=== PATIENT | male | born 1935 | race Caucasian/White ===

== ENCOUNTER → 2016-06-30 09:46 | Outpatient (CLI) | payer MEDICARE ==
[2016-06-23 11:45] VITALS: BMI 20.5
[~2016-06-30 09:46] MED LIST: ADVAIR 250/501 DISK INH; BAYER ASPIRIN325 MG PO; BAYER CHEWABLE81 MG PO; BETAPACE 80 MG80 MG PO; BREO ELLIPTA 11 EACH INH; BROVANA15 MCG/2 M INH; BUMEX2 MG PO; CARDIZEM CD120 MG PO; CARDIZEM CD240 MG PO; CARDIZEM LA180 MG PO; CARDIZEM60 MG PO; DROXIA200 MG PO; FOLATE0.4 MG; FOLATE0.4 MG PO; HYDROXYUREA500 MG PO; IMIQUIMOD 5% TOPICAL; IPRAT-ALBUT 0.5-3 ML UPD; LANOXIN250 MCG PO; LASIX20 MG PO; LEVAQUIN500 MG PO; LEVAQUIN750 MG PO; LEXAPRO10 MG PO; LOPRESSOR25 MG PO; MUCINEX600 MG PO; MULTIPLE VITAMI1 TA1 PO; NORVASC2.5 MG PO; OMNICEF300 MG PO; PREDNISONE10 MG PO; PREDNISONE20 MG PO; PULMICORT0.5 MG/21 UPD; SINGULAIR10 MG PO; SOLU-MEDRO40 MG/1 M1 PO; XARELTO15 MG PO; ZPAK PO
== END | disposition home or self-care (01) ==
LOC: D.RT 09:46
DX: J44.9 Chronic obstructive pulmonary disease, unspecified (principal)

== ENCOUNTER 2016-07-02 12:34 | Inpatient (IN) | payer MEDICARE ==
[~2016-07-02] VITALS: Ht 177.8 cm; Wt 68.9 kg
[~2016-07-02 12:34] MED LIST changes: -CARDIZEM CD120 MG PO; -LANOXIN250 MCG PO; -LEXAPRO10 MG PO; -ZPAK PO
--- NOTE | 2016-07-02 12:53 | NUR ---
RECEIVED PT FROM ADMISSIONS DIRECT ADMIT FROM DR INIGUEZ'S OFFICE PT AAOX4 RESP SOB ON O2 5LPM NC TELEMETRY APPLIED UCAF 127 SALINE LOCK SITED TO RFA WITH 22 GA IV CATH X 1 ATTEMPT USING ASEPTIC TECHNIQUE
[2016-07-02 13:04] VITALS: BP 121/71; BMI 21.4
[2016-07-02 14:37] LABS: BASOPHILS 0.3 % (0.0-2.0); EOSINOPHILS 1.4 % (0-7); HEMATOCRIT 34.3 % (42.0-54.0); HEMOGLOBIN 13.1 g/dL (13.5-17.5); IMMATURE GRANULOCYTES 1.7 % (0-5); LYMPHOCYTES 12.6 % (15-50); MCH 39.9 pg (26.0-34.0); MCHC 38.2 g/dL (31.0-37.0); MCV 104.6 fL (80.0-100.0); MEAN PLATELET VOLUME 11.2 fL (7.4-10.4); MONOCYTES 2.3 % (2-11); NEUTROPHILS 81.7 % (40-80); PLATELET COUNT 279 10x3/uL (130-400); RBC 3.28 10x6/uL (4.20-6.10); RDW 17.3 % (11.5-14.5); WBC 14.4 10x3/uL (4.8-10.8)
[2016-07-02 14:50] LABS: ANION GAP 14.3 mmol/L (8-16); BILIRUBIN - TOTAL 1.53 mg/dL (0.2-1.3); CALCIUM 8.8 mg/dL (8.5-10.1); CARBON DIOXIDE 30.8 mmol/L (21.0-32.0); CREATININE - SERUM 1.3 mg/dL (0.6-1.3); POTASSIUM - SERUM 4.1 mmol/L (3.5-5.1); PROTEIN - SERUM 6.4 g/dL (6.4-8.2)
[2016-07-02 15:07] LABS: CKMB 1.1 U/L (0.0-3.6); CREATINE KINASE 42 UL (21-232)
[2016-07-02 15:16] LABS: TROPONIN-I < 0.017 ng/mL (0.000-0.060)
[2016-07-02 16:00] VITALS: BP 109/31
--- NOTE | 2016-07-02 19:00 | NUR ---
RECEIVED REPORT AND ASSUMED PT CARE FROM DAY SHIFT NURSE @ THIS TIME.
[2016-07-02 19:41] LABS: CKMB 0.7 U/L (0.0-3.6); CREATINE KINASE 29 UL (21-232)
[2016-07-02 19:42] LABS: TROPONIN-I < 0.017 ng/mL (0.000-0.060)
[2016-07-02 21:00] VITALS: BP 107/68
[2016-07-03 00:42] VITALS: BP 100/68
[2016-07-03 02:22] LABS: BASOPHILS 0.3 % (0.0-2.0); HEMATOCRIT 35.9 % (42.0-54.0); HEMOGLOBIN 11.5 g/dL (13.5-17.5); IMMATURE GRANULOCYTES 1.1 % (0-5); LYMPHOCYTES 17.5 % (15-50); MCH 32.9 pg (26.0-34.0); MEAN PLATELET VOLUME 10.7 fL (7.4-10.4); MONOCYTES 4.4 % (2-11); NEUTROPHILS 75.7 % (40-80); PLATELET COUNT 272 10x3/uL (130-400); RDW 17.1 % (11.5-14.5); WBC 12.5 10x3/uL (4.8-10.8)
[2016-07-03 02:26] LABS: MCV 102.6 fL (80.0-100.0)
[2016-07-03 02:49] LABS: CALCIUM 8.4 mg/dL (8.5-10.1); CARBON DIOXIDE 32.4 mmol/L (21.0-32.0); CHLORIDE - SERUM 102 mmol/L (98-107); CKMB 0.7 U/L (0.0-3.6); CREATINE KINASE 27 UL (21-232); CREATININE - SERUM 1.2 mg/dL (0.6-1.3); MAGNESIUM - SERUM 2.2 mg/dL (1.8-2.4); PHOSPHOROUS 3.2 mg/dL (2.5-4.9); POTASSIUM - SERUM 3.9 mmol/L (3.5-5.1); PRO BNP 1851 pg/mL (0-450); SODIUM 139 mmol/L (136-145); UREA NITROGEN 34 mg/dL (7-18); eGFR NON AFRICAN AMERICAN 62 mL/min (90-120)
[2016-07-03 02:51] LABS: CALC OSMOLALITY 286 mosm/kg (275-300); GLUCOSE 115 mg/dL (74-106); TROPONIN-I < 0.017 ng/mL (0.000-0.060)
[2016-07-03 07:18] VITALS: BP 166/86
[2016-07-03 08:03] VITALS: BP 105/49
--- NOTE | 2016-07-03 10:28 | NUR ---
TELEMETRY CAF. UD GIVEN BY RT. 02 INCREASED TO 11L OXIMIZER TO KEEP SATS >92. WILL CONT. TO MONITOR.
--- NOTE | 2016-07-03 11:39 | NUR ---
LEAVING FOR CT BY W/C.
[2016-07-03 12:11] VITALS: BP 117/72
[2016-07-03 13:10] VITALS: Ht 177.8 cm; Wt 68.9 kg
--- NOTE | 2016-07-03 14:34 | NUR ---
AMBULATES HALLWAY WITH PT ASSIST.
--- NOTE | 2016-07-03 15:29 | NUR ---
VAPOR THERMAL PUT ON BY RT.
[2016-07-03 15:52] VITALS: BP 95/44
[2016-07-03 20:30] VITALS: BP 105/71
[2016-07-04 00:10] VITALS: BP 119/74
--- NOTE | 2016-07-04 02:15 | NUR ---
PT RESTING WELL WITHOUT C/O DISTRESS NOTED. NO NEEDS VOICED. CALL LIGHT WITHIN REACH. WILL CONT TO MONITOR.
[2016-07-04 04:20] VITALS: BP 116/71
[2016-07-04 08:00] VITALS: BP 123/71
[2016-07-04 08:22] VITALS: BP 106/59
--- NOTE | 2016-07-04 09:22 | NUR ---
UP IN ROOM AT SINK CLEANING UP. 02 35% VAPOTHERM. TELEMETRY CAF. WILL MONITOR NEEDS.
[2016-07-04 12:07] VITALS: BP 116/70
[2016-07-04 16:45] VITALS: BP 100/51
--- NOTE | 2016-07-04 19:17 | NUR ---
RESUMED CARE OF PT, LYING IN BED RESPIRATIONS EVEN AND UNLABORED ON 35LPM VIA VAPOTHERM. 88 CAF ON TELEMETRY. RIGHT FOREARM SALINE LOCKED. NO NEEDS VOICED AT THIS TIME. WILL CONTINUE TO MONITOR. SEE NURSE ASSESSMENT. CALL LIGHT IN REACH.
--- NOTE | 2016-07-04 23:24 | NUR ---
SHIPPING AND RECEIVING CLERK AT BEDSIDE TO OBTAIN VITALS, CALL LIGHT IN REACH. WILL CONTINUE WITH PLAN OF CARE.
[2016-07-05] VITALS: BP 108/67
--- NOTE | 2016-07-05 05:26 | NUR ---
AMBULATED IN HALLWAY TO NURSES STATION ON ROOM AIR. STATES "I FEEL GREAT, AND I WANTED TO SEE HOW I TOLERATED NO OXYGEN." VAPOTHERM FLUID EMPTY, NOTIFIED RT. WILL CONTINUE TO MONITOR.
[2016-07-05 06:43] LABS: BASOPHILS 0.1 % (0.0-2.0); EOSINOPHILS 0.1 % (0-7); HEMATOCRIT 38.9 % (42.0-54.0); HEMOGLOBIN 12.7 g/dL (13.5-17.5); IMMATURE GRANULOCYTES 1.2 % (0-5); LYMPHOCYTES 6.8 % (15-50); MCH 33.6 pg (26.0-34.0); MCHC 32.6 g/dL (31.0-37.0); MCV 102.9 fL (80.0-100.0); MEAN PLATELET VOLUME 11.5 fL (7.4-10.4); MONOCYTES 1.4 % (2-11); NEUTROPHILS 90.4 % (40-80); PLATELET COUNT 319 10x3/uL (130-400); RBC 3.78 10x6/uL (4.20-6.10); RDW 17.1 % (11.5-14.5); WBC 24.3 10x3/uL (4.8-10.8)
[2016-07-05 07:09] LABS: ANION GAP 14.2 mmol/L (8-16); CALCIUM 8.6 mg/dL (8.5-10.1); CARBON DIOXIDE 30.8 mmol/L (21.0-32.0); CREATININE - SERUM 1.1 mg/dL (0.6-1.3); MAGNESIUM - SERUM 2.1 mg/dL (1.8-2.4); PHOSPHOROUS 4.4 mg/dL (2.5-4.9)
--- NOTE | 2016-07-05 07:30 | NUR ---
RECEIVED PT IN BED EYES CLOSED RESP UNLABORED NAD NOTED
[2016-07-05 08:00] VITALS: BP 121/78
--- NOTE | 2016-07-05 11:50 | NUR ---
Patient Name: GONZALES BARRIOS Admission Status: Elective Accout number: [id number] Admission Date: 07-02-2016 : 3 Admission Diagnosis: COPD, A FIB Attending: HERBERT Current LOS: 3 Anticipated DC Date: 07-07-2016 Planned Disposition: Home independently with spouse. Denied DC needs. Primary Insurance: [facility] Discharge Planning Comments: CM met with patient to discuss dc plans/needs. Consent given from patient to discuss dc plans. Patient reports he lives at home with his independently. He is still able to drive. He does not currently have any community resources in place. He has used [facility] in the past but not currently. He plans to return to home with at discharge. He feels this is a safe discharge and he does not feel he will need any services arranged for discharge at this time. CM encouraged patient to contact cm if he does have discharge needs. CM will continue to follow and will assist with dc plans/needs. Important medicare message provided, explained, and signed by the patient. Copy of letter given to the patient. Signed message placed on patient's chart. Junior Java Developer: Telma Romo Is the patient Alert and Oriented? Yes 0 * How many steps to enter\exit or inside your home? none 0 * PCP Dr. Dixon 0 * Pharmacy [facility] near the [facility] 0 * Preadmission Environment Home with Family 0 * ADLs Independent 0 * Equipment Oxygen Shower Chair 0 * List name and contact numbers for known caregivers / representatives who currently or will assist patient after discharge: [facility] is O2 provider. Ron Barrios - Spouse - [phone] 0 * Community resources currently utilized None 0 * Please name any agencies selected above. Has used [facility] in the past. Not currently using any home health agencies. 0 * Additional services required to return to the preadmission environment? No 0 * Can the patient safely return to the preadmission environment? Yes 0 * Has this patient been hospitalized within the prior 30 days at any hospital? Yes 0 Grand Total: 0
[2016-07-05 12:00] VITALS: BP 132/79
[2016-07-05 16:00] VITALS: BP 121/68
[2016-07-06 02:11] VITALS: BP 163/92
--- NOTE | 2016-07-06 04:40 | NUR ---
PT LAYING IN BED NO DISTRESS OBSERVED AT THIS TIME RESPERATIONS EVEN AND UNLABORED ON OXYMIZER CALL LIGHT IN REACH SRX2 BED LOW AND LOCKED WILL MONITOR
[2016-07-06 05:29] VITALS: BP 162/95
[2016-07-06 07:27] VITALS: BP 120/72
--- NOTE | 2016-07-06 07:33 | NUR ---
ASSESSMENT COMPLETE PT RESTING QUIETLY DENIES ANY NEEDS OR DISCOMFORT
[2016-07-06 11:27] LABS: ALBUMIN 2.6 g/dL (3.4-5.0); ANION GAP 11.5 mmol/L (8-16); BILIRUBIN - TOTAL 0.9 mg/dL (0.2-1.3); CALCIUM 8.2 mg/dL (8.5-10.1); CARBON DIOXIDE 31.3 mmol/L (21.0-32.0); CREATININE - SERUM 1.2 mg/dL (0.6-1.3); POTASSIUM - SERUM 3.8 mmol/L (3.5-5.1); PROTEIN - SERUM 5.4 g/dL (6.4-8.2)
[2016-07-06 11:29] LABS: HEMATOCRIT 38.6 % (42.0-54.0); HEMOGLOBIN 12.3 g/dL (13.5-17.5); MCH 32.5 pg (26.0-34.0); MCHC 31.9 g/dL (31.0-37.0); MCV 102.1 fL (80.0-100.0); MEAN PLATELET VOLUME 10.7 fL (7.4-10.4); PLATELET COUNT 320 10x3/uL (130-400); RBC 3.78 10x6/uL (4.20-6.10); RDW 16.9 % (11.5-14.5); WBC 27.9 10x3/uL (4.8-10.8)
[2016-07-06 11:36] VITALS: BP 111/65
[2016-07-06 11:47] LABS: LYMPHOCYTES 8 % (15-50); MONOCYTES 3 % (2-11); NEUTROPHILS 89 % (40-80); PLATELET ESTIMATE NORMAL
--- NOTE | 2016-07-06 13:46 | NUR ---
WOUND CARE CONSULT: PT HAS NO SKIN ISSUES. HE IS UP WALKING WITH PHYSICAL THERAPY. WILL MONITOR NEEDED.
[2016-07-06 15:44] VITALS: BP 108/55
[2016-07-06 19:46] VITALS: BP 115/72
--- NOTE | 2016-07-06 23:49 | NUR ---
PT LAYING IN BED NO DISTRESS OBSERVED AT THIS TIME PT EYES CLOSED AND PT APPERS TO BE SLEEPING CALL LIGHT IN REACH SRX2 BED LOW AND LOCKED PT ON 3LNC AND SPO2 96% PT TOLERATING WELL WILL MONITOR
[2016-07-07 00:14] VITALS: BP 114/70
[2016-07-07 04:58] LABS: BASOPHILS 0.1 % (0.0-2.0); EOSINOPHILS 1.1 % (0-7); HEMATOCRIT 38.5 % (42.0-54.0); HEMOGLOBIN 12.4 g/dL (13.5-17.5); IMMATURE GRANULOCYTES 1.1 % (0-5); LYMPHOCYTES 13.2 % (15-50); MCH 32.9 pg (26.0-34.0); MCHC 32.2 g/dL (31.0-37.0); MCV 102.1 fL (80.0-100.0); MEAN PLATELET VOLUME 11.4 fL (7.4-10.4); MONOCYTES 1.3 % (2-11); NEUTROPHILS 83.2 % (40-80); PLATELET COUNT 304 10x3/uL (130-400); RBC 3.77 10x6/uL (4.20-6.10); RDW 16.7 % (11.5-14.5); WBC 23.2 10x3/uL (4.8-10.8)
[2016-07-07 05:05] LABS: ALBUMIN 2.6 g/dL (3.4-5.0); ANION GAP 7.3 mmol/L (8-16); BILIRUBIN - TOTAL 0.83 mg/dL (0.2-1.3); CALCIUM 8.4 mg/dL (8.5-10.1); CARBON DIOXIDE 36.1 mmol/L (21.0-32.0); CREATININE - SERUM 1.2 mg/dL (0.6-1.3); POTASSIUM - SERUM 3.4 mmol/L (3.5-5.1); PROTEIN - SERUM 5.6 g/dL (6.4-8.2)
[2016-07-07 05:07] VITALS: BP 128/83
[2016-07-07 07:37] VITALS: BP 125/83
--- NOTE | 2016-07-07 09:12 | NUR ---
RESP UL ON 02 3L OXIMIZER. TELEMETRY CAF. HR 65. CALL LIGHT IN REACH. WILL CONT. PLAN OF CARE.
--- NOTE | 2016-07-07 11:06 | NUR ---
leaving for x-ray by w/c.
[2016-07-07 11:27] VITALS: BP 110/74
--- NOTE | 2016-07-07 13:07 | NUR ---
UP AMBULATING HALLWAY WITH AT SIDE.
[2016-07-07 15:27] VITALS: BP 112/71
[2016-07-07 21:18] VITALS: BP 122/67
--- NOTE | 2016-07-07 23:32 | NUR ---
PT LAYING IN BED NO DISTRESS OBSERVED PT REQUESTICE WATER AND PRVODED TO PT AT THIS TIME CALL LIGHT IN REACH SRX2 BED LOW AND LOCKED WILL MONITOR
[2016-07-08 01:32] VITALS: BP 111/82
[2016-07-08 04:57] VITALS: BP 100/63
[2016-07-08] MEDS ORDERED: SINGULAIR10 MG PO (07:51)
[2016-07-08] MEDS ORDERED: ZPAK PO (07:51)
[2016-07-08 08:38] VITALS: BP 126/86
--- NOTE | 2016-07-08 10:51 | NUR ---
IV AND TELEMETRY DCD. DC PLANS GIVEN. UNDERSTANDING VOICED.
--- NOTE | 2016-07-08 11:58 | NUR ---
ESCORTED TO CAR BY W/C.
--- NOTE | 2016-07-09 11:11 | CN ---
PATIENT NAME:GONZALES BARRIOS MEDICAL RECORD: [id number] : 35 LOCATION:D. D.2114 ADMIT DATE: 07/02/16 ACCOUNT: [id number] CONSULTING PHYSICIAN: NAIMA CHRISTY MD REFERRING PHYSICIAN: MARCO INIGUEZ DO DATE OF CONSULTATION: 07/02/2016 Cardiology consultation DIAGNOSES: 1. Chronic obstructive pulmonary disease. 2. Atrial fibrillation, chronic. 3. Rapid atrial fibrillation with rapid ventricular response. 4. Hypertension. HISTORY OF PRESENT ILLNESS: Mr. Barrios is known to our group with a past history of atrial fibrillation and also admitted with COPD exacerbation, has atrial fibrillation with rapid ventricular response, heart rate in the 120 range. He was then admitted last week with very similar, he was previously on Cardizem 120 mg t.i.d. He was decreased to 240 mg q. day. He was also on sotalol 80 mg b.i.d. This was not changed. He has a tachyarrhythmias since he has been discharged. PHYSICAL EXAMINATION: GENERAL APPEARANCE: Well-nourished, well-developed, appears stated age. Level of distress, comfortable. PSYCHIATRIC: Mental status, alert, normal affect. Orientation, oriented to time, place and person. EYES: Lids and conjunctiva, noninjected. No discharge, no pallor. ENT: Lips, teeth, gums, normal dentition. Oropharynx, no cyanosis, no pallor. NECK: Carotid arteries, bilateral normal upstroke, no bruits, no thrills. JUGULAR VEINS: No jugular venous pressure or distention. CERVICAL LYMPH NODES: Nontender, nonenlarged. THYROID: Not enlarged. Nontender. No nodules. LUNGS: Respiratory effort, unlabored. CHEST: Normal curvature. No thoracic deformity. No chest wall tenderness. Percussion, resonant. Auscultation, clear. No wheezes, no rales, no rhonchi. CARDIOVASCULAR: Precordial exam, nondisplaced. No heaves or pericardial thrills. Rate and rhythm, regular. Heart sounds, normal S1, normal S2. No S3, no gallop, no rub. Systolic murmur, not heard. Diastolic murmur, not heard. EXTREMITIES: No cyanosis, no edema. Peripheral pulses, full and equal in all extremities, except as noted. No bruits appreciated. ABDOMEN: Soft, nondistended. Normal aorta. No bruit. Nontender. No masses. Liver, nontender, no hepatomegaly. Spleen, nontender, no splenomegaly. MUSCULOSKELETAL: No joint tenderness. No joint swelling. No erythema. NEUROLOGICAL: Normal gait, normal strength, normal tone. SKIN: Warm and dry. REVIEW OF SYSTEMS: The patient reports easy bruising but reports no swollen glands. The patient reports no fever, no night sweats, no significant weight gain, no significant weight loss. No significant exercise tolerance. The patient reports no dry eyes, no irritation, no vision change. Patient reports no difficulty hearing and no ear pain. Patient reports no frequent nose bleeds or nose and sinus problems. Patient reports on arm pain on exertion. No shortness of breath while lying down. No history of heart murmur. Patient CONSULT REPORT [id number] GONZALES BARRIOS reports no cough, no wheezing or coughing up blood. Patient reports no abdominal pain, no vomiting. Normal appetite. No diarrhea and not vomiting blood. No nausea and no constipation. Patient reports no incontinence. No difficulty urinating. No hematuria. No increased frequency. Patient reports no muscle aches. No weakness, no arthralgias, no back pain. No swelling of the extremities. Patient reports no abnormal mole, no jaundice, no rashes. Reports no loss of consciousness. No weakness and no numbness. No seizures, dizziness, or headaches. The patient reports no depression, no sleep disturbance, feeling safe in a relationship and no alcohol abuse. Patient reports on fatigue. Reports no runny nose or sinus pressure. No itching, no hives, and no frequent sneezing. OVERALL IMPRESSION: Atrial fibrillation with rapid ventricular response. At this time, we will go back to Cardizem 120 mg t.i.d. to give 360 mg total dose and go up on sotalol to 120 mg b.i.d. as well. TRANSINT:[id number] Voice Confirmation ID: [id number] DOCUMENT ID: [id number] NAIMA CHRISTY MD at 1111 CC: [id number] DICTATION DATE: 07/02/16 1525 EDUCATION SUPERVISOR: 07/02/16 1653 DIS IN 07/08/16 [place] [address]
== END 2016-07-08 12:00 | disposition home or self-care (01) | DRG 189 ==
LOC: D.M2 12:34
PROVIDERS: Internal Medicine Pulmonary Disease; ADMIT Family Medicine
DX: J96.21 Acute and chronic respiratory failure with hypoxia (principal); I50.23 Acute on chronic systolic (congestive) heart failure; I13.0 Hypertensive heart and chronic kidney disease with heart failure and stage 1 through stage 4 chronic kidney disease, or unspecified chronic kidney disease; J44.1 Chronic obstructive pulmonary disease with (acute) exacerbation; N18.3 Chronic kidney disease, stage 3 (moderate)

== ENCOUNTER → 2016-07-13 18:00 | Outpatient (CLI) | payer MEDICARE ==
[2016-07-03 13:10] VITALS: BMI 21.4
[~2016-07-13 18:00] MED LIST changes: +CARDIZEM CD120 MG PO; +LANOXIN250 MCG PO; +LEXAPRO10 MG PO; +ZPAK PO
== END | disposition home or self-care (01) ==
LOC: D.LABREF 18:00
DX: I48.91 Unspecified atrial fibrillation (principal)

== ENCOUNTER 2016-07-14 09:57 | Inpatient (IN) | payer MEDICARE ==
[~2016-07-14] VITALS: Ht 177.8 cm; Wt 62.0 kg
[~2016-07-14 09:57] MED LIST changes: -CARDIZEM CD120 MG PO; -LANOXIN250 MCG PO; -LEXAPRO10 MG PO
[2016-07-14 11:03] LABS: BASOPHILS 0.3 % (0.0-2.0); EOSINOPHILS 2.4 % (0-7); HEMATOCRIT 39.1 % (42.0-54.0); HEMOGLOBIN 12.2 g/dL (13.5-17.5); IMMATURE GRANULOCYTES 1.3 % (0-5); MCH 32.4 pg (26.0-34.0); MCHC 31.2 g/dL (31.0-37.0); MCV 103.7 fL (80.0-100.0); MEAN PLATELET VOLUME 11.7 fL (7.4-10.4); MONOCYTES 3.5 % (2-11); NEUTROPHILS 85.5 % (40-80); PLATELET COUNT 246 10x3/uL (130-400); RBC 3.77 10x6/uL (4.20-6.10)
[2016-07-14 11:35] LABS: ALBUMIN 2.7 g/dL (3.4-5.0); ANION GAP 10.9 mmol/L (8-16); BILIRUBIN - TOTAL 1.13 mg/dL (0.2-1.3); CALCIUM 8.4 mg/dL (8.5-10.1); CARBON DIOXIDE 31.6 mmol/L (21.0-32.0); CREATININE - SERUM 1.4 mg/dL (0.6-1.3); POTASSIUM - SERUM 4.5 mmol/L (3.5-5.1); PROTEIN - SERUM 5.8 g/dL (6.4-8.2)
[2016-07-14 15:06] VITALS: BP 132/80; BMI 20.1
--- NOTE | 2016-07-14 15:21 | NUR ---
PATIENT ARRIVED FROM ER. WORKING TO BREATHE. O2 @ 5L COLOR GOOD COOL AND DRY. NO CYANOSIS NOTED. NO EDEMA IN EXTREMITIES. MONITOR ON AND UCAFIB@141. IV L FA 18 GA STARTED BY EMS. DR. GLEASON ON FLOOR AND NOTIFIED OF PATIENT'S ADMISSION. SPOUSE AT BEDSIDE.
--- NOTE | 2016-07-14 16:14 | NUR ---
CARIDZEM BOLUS OF 10 GIVEN IV. THEN ANOTHER PIV STARTED IN L FOREARM( 20 GA 1 IN) X 1 ATTEMPT. CARDIZEM GTT STARTED @ 10MG/HR. PATIENT STILL SOB AND WOB HARD. WILL CONTINUE TO MONITOR. IV LINES LABELED:A REG IV. B: CARDIZEM GTT
--- NOTE | 2016-07-14 19:35 | NUR ---
RESUMED CARE OF PT, UP ON SIDE OF BED RESPIRATIONS EVEN AND UNLABORED ON AN OXYMIZER @ 10. UPDRAFT IN PROGRESS. 115 UCAF ON TELEMETRY. LEFT FOREARM INFUSING CARDIZEM @ 10 AND NS @ 50. NO NEEDS VOICED AT THIS TIME. WILL CONTINUE TO MONITOR, CALL LIGHT IN REACH. SEE NURSE ASSESSMENT.
[2016-07-14 20:00] VITALS: BP 129/92
[2016-07-15] VITALS: BP 136/90
[2016-07-15 04:00] VITALS: BP 129/87
--- NOTE | 2016-07-15 04:10 | NUR ---
MEDICAL HEALTH RESEARCHER AT BEDSIDE TO OBTAIN VITALS, CALL LIGHT IN REACH. WILL CONTINUE WITH PLAN OF CARE.
[2016-07-15 05:09] LABS: BASOPHILS 0.1 % (0.0-2.0); EOSINOPHILS 0.1 % (0-7); HEMOGLOBIN 12.6 g/dL (13.5-17.5); IMMATURE GRANULOCYTES 1.2 % (0-5); MCH 31.8 pg (26.0-34.0); MCHC 30.7 g/dL (31.0-37.0); MCV 103.5 fL (80.0-100.0); MEAN PLATELET VOLUME 11.6 fL (7.4-10.4); MONOCYTES 1.9 % (2-11); NEUTROPHILS 91.7 % (40-80); PLATELET COUNT 264 10x3/uL (130-400); RBC 3.96 10x6/uL (4.20-6.10); RDW 16.9 % (11.5-14.5); WBC 18.3 10x3/uL (4.8-10.8)
--- NOTE | 2016-07-15 05:18 | NUR ---
EXPERIENCING SHORTNESS OF BREATH. 93% O2SAT ON 10LPM VIA OXYMIZER. 143 UCAF. RESPIRATORY NOTIFIED. XOPENEX PRN IN PROCESS.
[2016-07-15 05:45] LABS: ALBUMIN 2.7 g/dL (3.4-5.0); ALKALINE PHOSPHATASE 74 U/L (46-116); ALT (SGPT) 33 U/L (10-68); BILIRUBIN - TOTAL 0.96 mg/dL (0.2-1.3); CALC OSMOLALITY 289 mosm/kg (275-300); CALCIUM 8.3 mg/dL (8.5-10.1); CARBON DIOXIDE 26.5 mmol/L (21.0-32.0); CHLORIDE - SERUM 104 mmol/L (98-107); CREATININE - SERUM 1.3 mg/dL (0.6-1.3); GLUCOSE 143 mg/dL (74-106); MAGNESIUM - SERUM 2.3 mg/dL (1.8-2.4); PHOSPHOROUS 4.3 mg/dL (2.5-4.9); POTASSIUM - SERUM 4.5 mmol/L (3.5-5.1); PROTEIN - SERUM 6.4 g/dL (6.4-8.2); SODIUM 141 mmol/L (136-145); UREA NITROGEN 32 mg/dL (7-18); eGFR NON AFRICAN AMERICAN 56 mL/min (90-120)
[2016-07-15 05:55] LABS: TROPONIN-I < 0.017 ng/mL (0.000-0.060)
--- NOTE | 2016-07-15 07:11 | NUR ---
PT SITTING UP IN BED WITH BIPAP ON. PT STATES HE CAN BREATHE MUCH BETTER WITH BIPAP ON AND HE IS WAITING FOR HIS TO GET HERE AT 0800. DENIES OTHER NEEDS WILL CONTINUE TO MONITOR.
[2016-07-15 08:02] VITALS: BP 91/65
--- NOTE | 2016-07-15 10:02 | NUR ---
CALLED DR GLEASON AND CHECKED WITH HIM TO SEE IF OK WITH HIM TO START PT ON LOW DOSE VALIUM PER DR INIGUEZ FOR ANXIETY. HE SAID HE WAS OK WITH LOW DOSE VALIUM OR ATIVAN EITHER ONE. CALLED DR MIRAMONTES OFFICE AND SPOKE WITH MOISES. SHE SAID SHE WOULD TALK TO DR INIGUEZ AND LET HIM KNOW SO HE CAN PUT THE ORDER IN.
[2016-07-15 12:14] VITALS: BP 142/85
[2016-07-15 12:33] VITALS: Ht 177.8 cm; Wt 62.0 kg
[2016-07-15 16:23] VITALS: BP 116/73
--- NOTE | 2016-07-15 17:46 | NUR ---
PT SITTING UP IN BED EMMA NEEDS
--- NOTE | 2016-07-15 19:15 | NUR ---
RESUME CARE OF PT, USING BIPAP 40%, [id number] DRIP @10, LFA-NS-50, [id number],BED IS LOW, SRX2, CALL LIGHT IN REACH, PT DENIES ANY NEEDS, WILL CONTINUE TO MONITOR
[2016-07-15 20:00] VITALS: BP 122/74
[2016-07-16] VITALS: BP 125/80
[2016-07-16 04:00] VITALS: BP 109/70
--- NOTE | 2016-07-16 04:04 | NUR ---
TRACK WATCHMAN AT BEDSIDE TO OBTAIN VITALS, CALL LIGHT IN REACH. WILL CONTINUE TO MONITOR.
--- NOTE | 2016-07-16 04:13 | NUR ---
SLEEPING, BIPAP ON, CALL LIGHT IN REACH, BED IS LOW, SRX2
[2016-07-16 06:26] LABS: BASOPHILS 0.1 % (0.0-2.0); EOSINOPHILS 0.4 % (0-7); HEMATOCRIT 39.5 % (42.0-54.0); HEMOGLOBIN 12.2 g/dL (13.5-17.5); IMMATURE GRANULOCYTES 1.1 % (0-5); LYMPHOCYTES 7.3 % (15-50); MCH 31.9 pg (26.0-34.0); MCHC 30.9 g/dL (31.0-37.0); MCV 103.4 fL (80.0-100.0); MEAN PLATELET VOLUME 11.3 fL (7.4-10.4); MONOCYTES 1.4 % (2-11); NEUTROPHILS 89.7 % (40-80); PLATELET COUNT 241 10x3/uL (130-400); RBC 3.82 10x6/uL (4.20-6.10); RDW 17.1 % (11.5-14.5)
[2016-07-16 06:46] LABS: MAGNESIUM - SERUM 2.3 mg/dL (1.8-2.4); PHOSPHOROUS 3.6 mg/dL (2.5-4.9); POTASSIUM - SERUM 4.3 mmol/L (3.5-5.1)
--- NOTE | 2016-07-16 07:15 | NUR ---
PT SITTING UP IN BED WATCHING TV DENIES NEEDS WILL CONTINUE TO MONITOR.
[2016-07-16 07:51] VITALS: BP 109/64
[2016-07-16 12:00] VITALS: BP 130/67
[2016-07-16 15:58] VITALS: BP 130/59
--- NOTE | 2016-07-16 16:53 | NUR ---
Patient Name: GONZALES STAFFORD Admission Status: ER Accout number: [id number] Admission Date: 07-14-2016 : 1935 Admission Diagnosis:SHORTNESS OF BREATH Attending: HERBERT Current LOS: 2 Anticipated DC Date: Planned Disposition: Home with Home Health Primary Insurance: [facility] PLANNED EXTERNAL PROVIDER: [facility] Discharge Planning Comments: * Is the patient Alert and Oriented? Yes 0 * How many steps to enter\exit or inside your home? NONE 0 * PCP DR. INIGUEZ 0 * Pharmacy [facility], [place] 0 * Preadmission Environment Home with Family 0 * ADLs Independent 0 * Equipment Oxygen Shower Chair 0 * Other Equipment HOME AND PORTABLE OXYGEN [facility] - MEDICAL EQUIPMENT PROVIDER 0 * List name and contact numbers for known caregivers / representatives who currently or will assist patient after discharge: BRYAN STAFFORD, SPOUSE, 0 * Community resources currently utilized None 0 * Please name any agencies selected above. NONE 0 * Additional services required to return to the preadmission environment? Yes * Can the patient safely return to the preadmission environment? Yes 0 * Has this patient been hospitalized within the prior 30 days at any hospital? Yes 0 CM MET WITH PT IN ROOM TO DISCUSS DISCHARGE PLANNING AND NEEDS. PT REPORTS LIVING AT HOME INDEPENDENTLY WITH SPOUSE. PT HAS HOME AND PORTABLE OXYGEN AND SHOWER CHAIR AT HOME FROM [facility]. PT HAS NO OUTSIDE SERVICES ASSISTING IN THE HOME. CM DISCUSSED AVAILABILITY OF HOME HEALTH, REHAB SERVICES AND MEDICAL EQUIPMENT. PT WOULD LIKE HOME HEALTH AT DISCHARGE WITH [facility], HE HAD THEM IN THE PAST AND THEY HAVE HELPED HIM WITH THERAPY AND PT REPORTS GETTING WEAK AGAIN. CHOICE LETTER FOR [facility] SIGNED. PT REPORTS HIS WILL PICK HIM UP FOR DISCHARGE HOME. PT WOULD LIKE [facility] FOR PHYSICAL THERAPY AT HOME; IF DOCTOR AGREES, CM WILL ARRANGE WITH PHYSICIAN ORDERS FOR HOME HEALTH SERVICES. Residential Gl[facility]ier: Osito Edmondson
--- NOTE | 2016-07-16 17:45 | NUR ---
PT SITTING UP IN BED TALKING ON THE PHONE WITH FRIEND DENIES NEEDS WILL CONTINUE TO MONITOR.
[2016-07-16 20:00] VITALS: BP 123/72
--- NOTE | 2016-07-16 20:00 | NUR ---
PT RESTING IN BED WITH NO DISTESS. CURRENTLY HAS OXIMISER AT 10ML IN PLACE WITH NONLABORED RESPIRATIONS. IV TO LFA WITH CARDIZEM AT 10ML/HR AND NS @ 50ML/HR INFUSING. UCAF PER TELEMETRY. FSBS 231, TREATED WITH SLIDING SCALE.
[2016-07-17] VITALS: BP 128/78
--- NOTE | 2016-07-17 01:51 | NUR ---
RESTING IN BED. PT HAS NOW HAD RESPIRATORY PLACE HIM ON BIPAP AND RESPS ARE EVEN/NONLABORD. CALL LIGHT IN REACH.
[2016-07-17 04:00] VITALS: BP 119/66
[2016-07-17 06:48] LABS: BASOPHILS 0.2 % (0.0-2.0); EOSINOPHILS 0.5 % (0-7); HEMATOCRIT 36.3 % (42.0-54.0); HEMOGLOBIN 11.1 g/dL (13.5-17.5); IMMATURE GRANULOCYTES 0.9 % (0-5); LYMPHOCYTES 7.1 % (15-50); MCH 31.7 pg (26.0-34.0); MCHC 30.6 g/dL (31.0-37.0); MCV 103.7 fL (80.0-100.0); MEAN PLATELET VOLUME 11.5 fL (7.4-10.4); MONOCYTES 1.7 % (2-11); NEUTROPHILS 89.6 % (40-80); PLATELET COUNT 224 10x3/uL (130-400); WBC 16.6 10x3/uL (4.8-10.8)
--- NOTE | 2016-07-17 07:00 | NUR ---
RECEIVED REPORT. ASSUMED CARE OF PATIENT. PATEINT SITTING UP IN BED WITH EYES OPEN, BIPAP PATENT. PATIENT DENIES PAIN OR DISCOMFORT. DENIES NEEDS AT THIS TIME. NO DISTRESS.
[2016-07-17 07:12] LABS: ALBUMIN 2.3 g/dL (3.4-5.0); ANION GAP 11.6 mmol/L (8-16); BILIRUBIN - TOTAL 0.6 mg/dL (0.2-1.3); CARBON DIOXIDE 28.5 mmol/L (21.0-32.0); CREATININE - SERUM 1.2 mg/dL (0.6-1.3); PHOSPHOROUS 3.5 mg/dL (2.5-4.9); POTASSIUM - SERUM 4.1 mmol/L (3.5-5.1); PROTEIN - SERUM 5.6 g/dL (6.4-8.2)
[2016-07-17 08:02] VITALS: BP 117/73
[2016-07-17 11:18] VITALS: BP 121/72
--- NOTE | 2016-07-17 11:19 | NUR ---
FSBS 267. 10 UNITS HUMALIN ADMINISTERED PER SLIDING SCALE. NO DISTRESS.
--- NOTE | 2016-07-17 12:31 | NUR ---
SPOKE WITH IN REGARDS TO PATIENT IN UCAF AND ON CARDIZEN DRIP. NEW ORDERS RECEIVED FOR CARDIZEM CD 240MG X 1 AND CARDIZEM 10MG BOLUS AND CONTINUE WITH CARDIZEM DRIP AT 10ML/HR AT THIS TIME.
--- NOTE | 2016-07-17 15:24 | NUR ---
PATIENT WITH EYES OPEN. RESTING IN BED. PATIENT RECEIVING BREATHING TX AT THIS TIME. NO DISTRESS. DENIES PAIN. CALL LIGHT WITHIN REACH.
[2016-07-17 15:50] VITALS: BP 122/80
--- NOTE | 2016-07-17 16:50 | NUR ---
FSBS 184. 4 UNITS HUMALIN ADMINISTERED PER SLIDING SCALE AT THIS TIME. SITTING TO SIDE OF BED WAITING FOR PM MEAL AT THIS TIME. NO DISTRESS.
[2016-07-17 20:28] VITALS: BP 127/69
[2016-07-18 00:19] VITALS: BP 126/65
--- NOTE | 2016-07-18 02:59 | NUR ---
ASSESSED AT THE BEGINNING OF THE SHIFT. PT IS ALERT AND ORIENTED, ABLE TO VERBALIZE NEEDS. HE HAS A CARDIAC DRIP FOR HIS A-FIB AND IT IS CONTROLLED NOW. O2 IS BY OXIMIZER AT 8 LITERS UNTIL BEDTIME AT WHICH TIME HE IS USING BIPAP. HE IS ABLE TO TURN AND REPOSITON HIMSELF IN BED AND GET UP TO THE BATHROOM WHEN HE IS NOT USING THE URINAL. THE BED IS LOW, RAILS UP X'S 2 WITH THE CALL LIGHT AT HAND. HE HAS A NEW 20 GAUGE TO THE LEFT FOREARM BECAUSE ONE WAS LEAKING. NOW BOTH IV SITES ARE PATENT.
[2016-07-18 05:09] LABS: BASOPHILS 0.1 % (0.0-2.0); EOSINOPHILS 0.3 % (0-7); HEMATOCRIT 35.6 % (42.0-54.0); HEMOGLOBIN 11.2 g/dL (13.5-17.5); IMMATURE GRANULOCYTES 1.3 % (0-5); LYMPHOCYTES 6.5 % (15-50); MCHC 31.5 g/dL (31.0-37.0); MCV 101.7 fL (80.0-100.0); MEAN PLATELET VOLUME 11.5 fL (7.4-10.4); MONOCYTES 0.7 % (2-11); NEUTROPHILS 91.1 % (40-80); PLATELET COUNT 227 10x3/uL (130-400); RDW 16.8 % (11.5-14.5); WBC 17.3 10x3/uL (4.8-10.8)
[2016-07-18 05:17] VITALS: BP 128/65
[2016-07-18 05:27] LABS: CALCIUM 8.3 mg/dL (8.5-10.1); CARBON DIOXIDE 28.8 mmol/L (21.0-32.0); CREATININE - SERUM 1.1 mg/dL (0.6-1.3); MAGNESIUM - SERUM 1.9 mg/dL (1.8-2.4); POTASSIUM - SERUM 3.8 mmol/L (3.5-5.1)
--- NOTE | 2016-07-18 07:00 | NUR ---
RECEIVED REPORT. ASSUMED CARE OF PATIENT. CALL LIGHT WITHIN REACH. SITTING UP IN BED READING THE PAPER. OXIMIZER AT 8L. RESP EVEN AND UNLABORED. DENIES NEEDS. DENIES PAIN. NO DISTRESS.
[2016-07-18 07:41] VITALS: BP 99/67
[2016-07-18 11:23] VITALS: BP 137/73
--- NOTE | 2016-07-18 11:37 | NUR ---
FSBS 313. 12 UNITS HUMULIN ADMINISTERED PER SLIDING SCALE AT THIS TIME. NO DISTRESS.
--- NOTE | 2016-07-18 13:50 | NUR ---
IV CARDIZEM DISCONTINUED AND ORAL CARDIZEM CD STARTED AT THIS TIME. PATIENT MADE AWARE OF CURRENT CHANGES. PATIENT COMPLETING BREATHING TX AT THIS TIME.
[2016-07-18 15:24] VITALS: BP 159/79
--- NOTE | 2016-07-18 16:32 | NUR ---
FSBS 252. 10 UNITS HUMULIN ADMINISTERED PER SLIDING SCALE AT THIS TIME.
[2016-07-18 19:00] VITALS: BP 123/68
--- NOTE | 2016-07-18 19:00 | NUR ---
REPORT GIVEN TO ONCOMING NURSE. NO DISTRESS.
--- NOTE | 2016-07-18 19:03 | NUR ---
SITTING UP IN BED, AAOX3, SKIN WARM AND DRY, RESP UNLABORED, IV PATENT TO LEFT FOREARM, O2@8L OXYMISER, MOOD PLEASANT, DENIES NEEDS
[2016-07-19] VITALS (7 sets, daily range): BP systolic 125–167; BP diastolic 67–84
--- NOTE | 2016-07-19 05:24 | NUR ---
SITTING UP IN BED, BIPAP IN USE, NO DISTRESS NOTED
[2016-07-19 05:38] LABS: BASOPHILS 0.1 % (0.0-2.0); EOSINOPHILS 0.4 % (0-7); HEMATOCRIT 32.9 % (42.0-54.0); HEMOGLOBIN 10.2 g/dL (13.5-17.5); IMMATURE GRANULOCYTES 1.5 % (0-5); LYMPHOCYTES 5.9 % (15-50); MCH 31.2 pg (26.0-34.0); MCV 100.6 fL (80.0-100.0); MONOCYTES 1.8 % (2-11); NEUTROPHILS 90.3 % (40-80); PLATELET COUNT 249 10x3/uL (130-400); RBC 3.27 10x6/uL (4.20-6.10); RDW 16.3 % (11.5-14.5); WBC 19.8 10x3/uL (4.8-10.8)
--- NOTE | 2016-07-19 05:59 | NUR ---
NO CHANGES FROM PREVIOUS ASSESSMENT, CALL LIGHT IN REACH. WILL CONTINUE WITH PLAN OF CARE.
[2016-07-19 06:41] LABS: ANION GAP 12.3 mmol/L (8-16); CALCIUM 7.9 mg/dL (8.5-10.1); CARBON DIOXIDE 29.1 mmol/L (21.0-32.0); CREATININE - SERUM 1.1 mg/dL (0.6-1.3); DIGOXIN 0.82 ng/mL (0.90-2.00); POTASSIUM - SERUM 3.4 mmol/L (3.5-5.1)
--- NOTE | 2016-07-19 07:34 | NUR ---
0700-AROUSES EASILY. REQUESTING SHAVE AND TEETH BRUSHING LATER THIS AM. ON HEART MONITOR SHOWING UCAF, HR 146. BIPAP SEEN AT BEDSIDE. ON 8L PER OX. LEFT FA SEEN WITH NS INFUSING AT 50 CC/HR, SALINE LOCK ALSO SEEN TO LEFT FA. WILL CONTINUE TO MONITOR.
--- NOTE | 2016-07-19 11:38 | NUR ---
Rehab Note- Prescreen Order received,. The patient has [employer] & will require a PreAuth prior to IRF stay. Need PT & OT eval prior to PreAuth process started. Thank you for this referral! Chanda White RN Clinical Liaison, Rehab Care/[facility]
--- NOTE | 2016-07-19 17:19 | NUR ---
SITTING ON SIDE OF BED EATING SUPPER. DENIES NEEDS AT PRESENT TIME. WILL CONTINUE TO MONITOR.
--- NOTE | 2016-07-19 19:41 | NUR ---
BEDSIDE REPORT RECIVED, INITITAL ASSESSMENT COMPLETE, PLEASE SEE FLOW SHEETS FOR DETAILS. DENIES PAIN/NEEDS AT THIS TIME, WILL CONTINUE TO MONITOR.
--- NOTE | 2016-07-19 21:00 | NUR ---
IN BED, RESTING, DENIES PAIN/NEEDS AT THIS TIME, WILL CONTINUE TO MONITOR.
--- NOTE | 2016-07-20 01:04 | NUR ---
PT SLEEPING. RESPIRATIONS UNLABORED AND NO S&S OF ACUTE DISTRESS. BIPAP ON. BED LOW AND LOCKED, CALL LIGHT IN REACH. WILL CONTINUE TO MONITOR.
--- NOTE | 2016-07-20 02:46 | NUR ---
PT SLEEPING. WILL CONTINUE TO MONITOR.
[2016-07-20 05:12] VITALS: BP 115/74
--- NOTE | 2016-07-20 07:00 | NUR ---
RECEIVED REPORT. ASSUMED CARE OF PATEINT. CALL LIGHT WITHIN REACH. SITTING UP IN BED WITH STUDENT NURSE AT BEDSIDE. RESP EVEN AND UNLABORED. OXIMIZER AT 8 LITERS. DENIES NEEDS AT THIS TIME. NO DISTRESS.
[2016-07-20 08:31] VITALS: BP 137/78
--- NOTE | 2016-07-20 10:52 | NUR ---
Rehab Note- OT Eval completed. Will submit to [facility] for PreAuth for possible IRF stay. Will continue to follow. Chanda White RN Clinical Liaison, Rehab Care/[facility]
--- NOTE | 2016-07-20 11:30 | NUR ---
FSBS 201. 8 UNITS INSULIN ADMINISTERED BY STUDENT NURSE AND INSTRUCTOR. PATIENT SITTING UP IN BED. NO DISTRESS.
[2016-07-20 11:42] VITALS: BP 106/74
--- NOTE | 2016-07-20 13:12 | NUR ---
Nutrition follow-up: Diet: Low sodium PO Intake 100% of meals Labs reviewed +BM Wt: 167# PO intake is good at this time RDN following.
--- NOTE | 2016-07-20 14:20 | NUR ---
All information submitted to [facility] for IRF authorization Ref# [id number] Robina Niño RN Clinical Liaison, Rehab
--- NOTE | 2016-07-20 14:37 | NUR ---
DRESSING CHANGE TO RIGHT FOREARM 22 GAUGE IV COMPLETE AT THIS TIME. TOLERATED IV SITE WELL. NO DISTRESS.
[2016-07-20 15:51] VITALS: BP 123/60
--- NOTE | 2016-07-20 16:24 | NUR ---
FSBS 141. NO INSULIN COVERAGE REQUIRED PER SLIDING SCALE.
--- NOTE | 2016-07-20 18:09 | NUR ---
RESTING WELL IN BED WITH EYES OPEN, ATTENTION TOWARD TELEVISION. CALL LIGHT WITHIN REACH. DENIES NEEDS. NO DISTRESS.
[2016-07-20 19:00] VITALS: BP 112/75
--- NOTE | 2016-07-20 19:00 | NUR ---
BEDSIDE SHIFT REPORT RECIVED, INITIAL ASSESSMENT COMPLETE, PLEASE SEE FLOW SHEETS FOR DETAILS. DENIES PAIN/NEEDS AT THIS TIME. BED LOW AND LOCKED, CALL LIGHT IN REACH. VSS, WILL CONTINUE TO MONITOR.
--- NOTE | 2016-07-21 00:17 | NUR ---
PT SLEEPING, BED LOW AND LOCKED, CALL LIGHT IN REACH. WILL CONTINUE TO MONITOR.
--- NOTE | 2016-07-21 03:31 | NUR ---
PT IV SITE WITH BLOOD AND DRESSING COMING UP. REDRESSED SITE. TIMED AND DATED. PT DENIES PAIN/NEEDS AT THIS TIME, WILL CONTINUE TO MONITOR.
[2016-07-21 04:00] VITALS: BP 118/59
[2016-07-21 05:04] LABS: HEMATOCRIT 30.6 % (42.0-54.0); HEMOGLOBIN 9.4 g/dL (13.5-17.5); MCH 30.7 pg (26.0-34.0); MCHC 30.7 g/dL (31.0-37.0); MEAN PLATELET VOLUME 11.8 fL (7.4-10.4); PLATELET COUNT 268 10x3/uL (130-400); RBC 3.06 10x6/uL (4.20-6.10); RDW 16.5 % (11.5-14.5); WBC 22.6 10x3/uL (4.8-10.8)
[2016-07-21 05:06] LABS: CALC OSMOLALITY 286 mosm/kg (275-300); CALCIUM 8.1 mg/dL (8.5-10.1); CARBON DIOXIDE 33.4 mmol/L (21.0-32.0); CHLORIDE - SERUM 103 mmol/L (98-107); GLUCOSE 93 mg/dL (74-106); POTASSIUM - SERUM 3.5 mmol/L (3.5-5.1); SODIUM 139 mmol/L (136-145); UREA NITROGEN 37 mg/dL (7-18); eGFR NON AFRICAN AMERICAN 76 mL/min (90-120)
[2016-07-21 05:33] LABS: LYMPHOCYTES 10 % (15-50); MONOCYTES 4 % (2-11); NEUTROPHILS 71 % (40-80); PLATELET ESTIMATE NORMAL
[2016-07-21 05:34] LABS: HYPER SEGMENTED NEUTROPHILS OCC; VACUOLES OCC
[2016-07-21 07:39] VITALS: BP 132/77
[2016-07-21 11:38] VITALS: BP 115/96
--- NOTE | 2016-07-21 11:59 | NUR ---
Patient Name: GONZALES STAFFORD Encounter No: [id number] : 1935 Primary Insurance: [id number] Anticipated DC Date: Planned Disposition: INPATIENT REHAB External Planned Provider: [facility] INPATIENT REHAB DCP follow-up note: CM SPOKE TO PT IN ROOM REGARDING ORDER FOR INPATIENT REHAB PRESCREENING, DISCHARGE PLANNING AND NEEDS. PT HAS DISCUSSED INPATIENT REHAB SERVICES WITH THE DOCTOR AND WOULD LIKE TO BE CONSIDERED FOR INPATIENT REHAB AT [facility]. IF DENIED, PT WOULD LIKE TO GO HOME WITH [facility]. CHART REVIEW INDICATES INPATIENT REHAB AUTHORIZATION REQUESTED/SUBMITTED TO PT'S INSURANCE COMPANY ON 07-20-16. IMPORTANT MESSAGE FROM MEDICARE PROVIDED AND EXPLAINED. CM WAITING INSURANCE AUTHORIZATION OR DENIAL FOR INPATIENT REHAB SERVICES AT [facility]. Osito Edmondson, CASE MANAGEMENT
[2016-07-21 15:25] VITALS: BP 113/66
--- NOTE | 2016-07-21 19:10 | NUR ---
ALERT AND ORIENTED X4. SITTING UP IN BED. DENIES PAIN. SOB TREATED WITH UPDRAFTS AND OXYGEN @ 5L OXYMIZER. CONTINUE PLAN OF CARE AND SAFETY PRECAUTIONS. PREPARE SHIFT CHANGE REPORT.
[2016-07-21 19:56] VITALS: BP 121/65
[2016-07-22] VITALS: BP 117/73
[2016-07-22 04:00] VITALS: BP 128/80
--- NOTE | 2016-07-22 05:27 | NUR ---
PT IV LEAKING AND SITE BLOODY. PT REQUESTS TO BE RESITED. RIGHT WRIST IV REMOVED WITH CATH INTACT. DRESSING TO SITE. IV RESITED TO LEFT FOREARM WITH 22 GA ANGIOCATH X1 STICK AND PT FACUNDO WELL. NS RESTARTED 50 CC/HR AND IV SECURED WITH TAPE. WILL CONT TO MONITOR.
--- NOTE | 2016-07-22 07:19 | NUR ---
PT STANDING UP TO SIDE OF BED USING URINAL. DENIES NEEDS WILL CONT TO MONITOR.
[2016-07-22 08:00] VITALS: BP 126/71
[2016-07-22 08:24] LABS: MAGNESIUM - SERUM 1.9 mg/dL (1.8-2.4); PHOSPHOROUS 3.6 mg/dL (2.5-4.9); POTASSIUM - SERUM 4.3 mmol/L (3.5-5.1)
[2016-07-22 12:00] VITALS: BP 132/76
--- NOTE | 2016-07-22 13:40 | NUR ---
PT SITTING UP IN BED DENIES NEEDS WILL CONTINUE TO MONITOR.
[2016-07-22 16:00] VITALS: BP 137/65
--- NOTE | 2016-07-22 17:47 | NUR ---
PT SITTING UP IN BED DENIES NEEDS WILL CONT TO MONITOR.
[2016-07-22 21:18] VITALS: BP 156/83
[2016-07-23 01:12] VITALS: BP 126/79
[2016-07-23 05:01] VITALS: BP 121/75
[2016-07-23 05:26] LABS: MAGNESIUM - SERUM 1.9 mg/dL (1.8-2.4); PHOSPHOROUS 3.7 mg/dL (2.5-4.9)
--- NOTE | 2016-07-23 07:00 | NUR ---
PT SITTING UP IN BED WATCHING TV DENIES NEEDS WILL CONT TO MONITOR.
[2016-07-23 08:00] VITALS: BP 106/68
[2016-07-23 12:00] VITALS: BP 111/63
--- NOTE | 2016-07-23 13:03 | NUR ---
Recieved a call from Bouchra at [facility]. The vice president medical affairs has denied the request for acute inpatient rehab because he is ambulating 250 ft. He feels his needs can be met at a skilled facility or home with HH. If the physician disagrees a peer to peer can be done with the vice president medical affairs by calling Bouchra at [phone] ext [phone]. Relayed this information to the Yanira Christianson RN. Robina Niño RN CL
--- NOTE | 2016-07-23 14:59 | NUR ---
PT SITTING UP IN BED WITH AT BEDSIDE. PT DENIES NEEDS JUST WAITING ON DECISION TO GO TO REHAB OR NOT. STILL WAITING ON INSURANCE APPROVAL.
[2016-07-23 16:00] VITALS: BP 113/63
[2016-07-23 22:07] VITALS: BP 112/60
[2016-07-24 01:00] VITALS: BP 127/83
[2016-07-24 04:31] VITALS: BP 131/84
--- NOTE | 2016-07-24 07:00 | NUR ---
RECEIVED REPORT. ASSUMED CARE OF PATIENT. CALL LIGHT WITHIN REACH. SITTING UP IN BED WITH EYES OPEN, ATTENTION TOWARD TELEVISION. RESP EVEN AND UNLABORED. IV FLUIDS INFUSING ORDERED. NO DISTRESS. DENIES NEEDS.
[2016-07-24 08:00] VITALS: BP 122/66
--- NOTE | 2016-07-24 10:15 | NUR ---
ASSISTED PATIENT IN APPLYING HIS BIPAP MASK AT THIS TIME. NO DISTRESS.
--- NOTE | 2016-07-24 11:16 | NUR ---
FSBS 110. NO INSULIN COVERAGE PER SLIDING SCALE.
--- NOTE | 2016-07-24 11:25 | NUR ---
BIPAP REMOVED AND OXIZER APPLIED. NO DISTRESS.
[2016-07-24 12:00] VITALS: BP 115/67
--- NOTE | 2016-07-24 14:08 | NUR ---
ASSISTED PATIENT WITH PLACING BIPAP MASK AT THIS TIME. NO DISTRESS. CALL LIGHT WITHIN REACH.
[2016-07-24 16:27] VITALS: BP 112/51
--- NOTE | 2016-07-24 17:05 | NUR ---
FSBS 234. 8 UNITS HUMULIN ADMINISTERED PER SLIDING SCALE.
--- NOTE | 2016-07-24 18:25 | NUR ---
RESTING IN BED WITH EYES OPEN. CALL LIGHT WITHIN REACH. DENIES NEEDS. IV FLUIDS INFUSING ORDERED. NO DISTRESS.
[2016-07-24 21:20] VITALS: BP 102/57
--- NOTE | 2016-07-24 21:23 | NUR ---
HS MEDS GIVEN, BS 72, NO COVERAGE NEEDED PER S/S.
[2016-07-25 00:30] VITALS: BP 103/56
--- NOTE | 2016-07-25 04:16 | NUR ---
BIPAP REMOVED AT PT REQUEST, OXIMIZER AT 5 LITER PLACED ON PT.
[2016-07-25 04:30] VITALS: BP 131/67
--- NOTE | 2016-07-25 07:00 | NUR ---
RECEIVED REPORT. ASSUMED CARE OF PATIENT. CALL LIGHT WITHIN REACH. DENIES NEEDS AT THIS TIME. NO DISTRESS. RESTING IN BED WITH EYES OPEN, RESP EVEN AND UNLABORED WITH OXIMIZER ON AT THIS TIME.
[2016-07-25 09:10] VITALS: BP 131/72
--- NOTE | 2016-07-25 09:30 | NUR ---
ASSISTED PATIENT WITH SET UP FOR AM CARES AT THIS TIME. NO DISTRESS.
--- NOTE | 2016-07-25 11:22 | NUR ---
FSBS 123. NO INSULIN COVERAGE PER SLIDING SCALE. NO DISTRESS.
[2016-07-25 12:00] VITALS: BP 150/69
--- NOTE | 2016-07-25 13:59 | NUR ---
BIPAP REMOVED AND PLACED ON OXIMIZER AT THIS TIME. NO DISTRESS.
[2016-07-25 16:00] VITALS: BP 101/62
--- NOTE | 2016-07-25 17:10 | NUR ---
FSBS 207. 8 UNITS HUMULIN ADMINISTERED PER SLIDING SCALE. NO DISTRESS. SITTING TO SIDE OF BED CONSUMING PM MEAL.
--- NOTE | 2016-07-25 19:03 | NUR ---
SITTING UP IN BED, AAOX3, SKIN WARM AND DRY, RESP UNLABORED, IV PATENT TO LEFT FOREARM, O2@5L OXY, MOOD PLEASANT, NO DISTRESS NOTED
--- NOTE | 2016-07-25 19:10 | NUR ---
REPORT GIVEN TO ONCOMING NURSE. NO DISTRESS.
[2016-07-26 00:06] VITALS: BP 115/63
[2016-07-26 05:35] LABS: BASOPHILS 0.2 % (0.0-2.0); EOSINOPHILS 1.1 % (0-7); HEMATOCRIT 28.1 % (42.0-54.0); HEMOGLOBIN 8.8 g/dL (13.5-17.5); IMMATURE GRANULOCYTES 3.5 % (0-5); LYMPHOCYTES 10.1 % (15-50); MCH 31.5 pg (26.0-34.0); MCHC 31.3 g/dL (31.0-37.0); MCV 100.7 fL (80.0-100.0); MEAN PLATELET VOLUME 11.4 fL (7.4-10.4); MONOCYTES 6.8 % (2-11); NEUTROPHILS 78.3 % (40-80); RBC 2.79 10x6/uL (4.20-6.10); RDW 17.3 % (11.5-14.5); WBC 14.2 10x3/uL (4.8-10.8)
[2016-07-26 05:41] LABS: PLATELET COUNT 343 10x3/uL (130-400)
[2016-07-26 05:55] VITALS: BP 123/61
[2016-07-26 05:56] LABS: CALC OSMOLALITY 285 mosm/kg (275-300); CALCIUM 7.9 mg/dL (8.5-10.1); CARBON DIOXIDE 32.3 mmol/L (21.0-32.0); CHLORIDE - SERUM 104 mmol/L (98-107); CREATININE - SERUM 0.9 mg/dL (0.6-1.3); GLUCOSE 87 mg/dL (74-106); POTASSIUM - SERUM 3.6 mmol/L (3.5-5.1); SODIUM 141 mmol/L (136-145); UREA NITROGEN 28 mg/dL (7-18); eGFR NON AFRICAN AMERICAN 86 mL/min (90-120)
[2016-07-26 08:25] VITALS: BP 103/82
--- NOTE | 2016-07-26 09:42 | NUR ---
TELEMETRY CAF HR 99. RESP UL ON 02 5L OXIMIZER. IV PATENT. CALL LIGHT IN REACH. WILL CONT. PLAN OF CARE.
--- NOTE | 2016-07-26 10:24 | NUR ---
Patient Name: GONZALES STAFFORD Encounter No: [id number] : 1935 Primary Insurance: [employer] Anticipated DC Date: 07-27-2016 Planned Disposition: Home with Home Health External Planned Provider: DR. INIGUEZ DCP follow-up note: CM MET WITH PT TO RE-ASSESS DC PLAN/NEEDS. PT STATED THAT HE IS EITHER CONSIDERING HOME WITH HOME HEALTH OR HOME WITH OUTPATIENT PHYSICAL THERAPY. HE WOULD PREFER TO HAVE OP PT IN [place] IF THAT IS AVAILABLE. CM PLACED CALL TO [facility] TO INQUIRE ABOUT OP PT SERVICES AND THEY INFORMED THAT OP PT IS OFFERED THROUGH THEIR "FIT FOR LIFE" PROGRAM AND REFERRAL/ORDER CAN BE SENT THERE. PATIENT STATED HE WOULD LIKE TO DISCUSS DC OPTIONS FURTHER WHEN HIS IS HERE. PATIENT TO CALL CM'S PHONE WHEN ARRIVES TO CONTINUE DC PLAN DISCUSSION. Yanira Hernandez RN
--- NOTE | 2016-07-26 12:05 | NUR ---
02 SAT 60% ON 02 4L NC. RESP PAGED. OXIMIZER APPLIED AT 13L. WILL CONT. TO MONITOR.
--- NOTE | 2016-07-26 12:22 | NUR ---
02 SAT 99% ON 02 5L NC. WILL CON. PLAN OF CARE.
[2016-07-26 12:53] VITALS: BP 149/62
--- NOTE | 2016-07-26 13:14 | NUR ---
Nutrition follow-up: Diet: low sodium PO intake 100% of most meals Labs reviewed +BM Wt: 139# RDN following.
[2016-07-26 16:49] VITALS: BP 128/65
--- NOTE | 2016-07-26 19:03 | NUR ---
SITTING UP IN BED, AAOX3, SKIN WARM AND DRY, RESP UNLABORED, IV PATENT TO LEFT FOREARM, O2@5LNC, MOOD PLEASANT, DENIES NEEDS
[2016-07-26 21:47] VITALS: BP 110/57
[2016-07-27 01:44] VITALS: BP 117/66
--- NOTE | 2016-07-27 01:47 | NUR ---
PT LAYING IN BED NO NO DISTRESS OBSERVED CALL LIGHT IN REACH SRX2 WILL MONITOR
--- NOTE | 2016-07-27 05:31 | NUR ---
RESTING QUIETLY IN BED, NO DISTRESS NOTED
[2016-07-27 06:10] VITALS: BP 118/76
--- NOTE | 2016-07-27 07:00 | NUR ---
RECEIVED REPORT. ASSUMED CARE OF PATIENT. SITTING UP IN BED WITH EYES OPEN. CALL LIGHT WITHIN REACH. O2 VIA NC. RESP EVEN AND UNLABORED. DENIES NEEDS. NO DISTRESS.
[2016-07-27 08:08] VITALS: BP 130/73
[2016-07-27 08:28] LABS: BASOPHILS 0.6 % (0.0-2.0); EOSINOPHILS 1.2 % (0-7); IMMATURE GRANULOCYTES 2.3 % (0-5); LYMPHOCYTES 6.9 % (15-50); MCH 30.9 pg (26.0-34.0); MCHC 30.3 g/dL (31.0-37.0); MCV 101.9 fL (80.0-100.0); MEAN PLATELET VOLUME 11.4 fL (7.4-10.4); MONOCYTES 7.9 % (2-11); NEUTROPHILS 81.1 % (40-80); RBC 3.24 10x6/uL (4.20-6.10); RDW 17.6 % (11.5-14.5); WBC 17.2 10x3/uL (4.8-10.8)
[2016-07-27 08:44] LABS: PLATELET COUNT 433 10x3/uL (130-400)
[2016-07-27 08:45] LABS: ALBUMIN 2.8 g/dL (3.4-5.0); ALKALINE PHOSPHATASE 67 U/L (46-116); ALT (SGPT) 58 U/L (10-68); CALC OSMOLALITY 278 mosm/kg (275-300); CALCIUM 8.2 mg/dL (8.5-10.1); CARBON DIOXIDE 32.3 mmol/L (21.0-32.0); CHLORIDE - SERUM 101 mmol/L (98-107); GLUCOSE 93 mg/dL (74-106); POTASSIUM - SERUM 3.4 mmol/L (3.5-5.1); PROTEIN - SERUM 5.8 g/dL (6.4-8.2); SODIUM 138 mmol/L (136-145); UREA NITROGEN 22 mg/dL (7-18); eGFR NON AFRICAN AMERICAN 76 mL/min (90-120)
--- NOTE | 2016-07-27 09:18 | NUR ---
SITTING TO SIDE OF BED COMPLETING AM CARES. K+ SUPPLEMENT PROVIDED. NO DISTRESS. CALL LIGHT WITHIN REACH.
--- NOTE | 2016-07-27 11:22 | NUR ---
FSBS 270. 10 UNITS HUMULIN ADMINISTERED PER SLIDING SCALE.
[2016-07-27 11:39] VITALS: BP 162/63
--- NOTE | 2016-07-27 13:58 | NUR ---
'S OFFICE CALLED TO REQUEST DISCHARGE ORDERS FROM NON HAVE BEEN PLACED IN COMPUTER AT THIS TIME AND PLACED HIS ORDER FOR DISCHARGE UNDER A NURSING MESSAGE. AWAITING FOR TO RETURN CALL.
[2016-07-27] MEDS ORDERED: CARDIZEM CD240 MG PO (14:14)
[2016-07-27] MEDS ORDERED: LANOXIN250 MCG PO (14:14)
[2016-07-27] MEDS ORDERED: LEXAPRO10 MG PO (14:15)
--- NOTE | 2016-07-27 14:30 | NUR ---
Patient Name: GONZALES STAFFORD Encounter No: [id number] : 1935 Primary Insurance: [employer] Anticipated DC Date: 07-27-2016 Planned Disposition: Home with Home Health External Planned Provider: [facility] DCP follow-up note: PATIENT HAS NOW DECIDED HE WOULD LIKE TO DC HOME WITH HOME HEALTH SERVICES FROM [facility]. HH MAURICE FORM SIGNED AND PLACED IN CHART. CM PLACED CALL TO [facility] AND SPOKE AYESHA TO INFORM OF HH ORDER. CM FAXED REFERRAL TO [facility]. PT HAS PORTABLE OXYGEN IN HIS ROOM AND WILL DRIVE HIM HOME AT DISCHARGE. DC IMM PRESENTED TO PATIENT. DC IMM PLACED IN PT'S CHART. NO FURTHER DC NEEDS VOICED. Yanira Hernandez RN
--- NOTE | 2016-07-27 15:10 | NUR ---
22 GAUGE IV REMOVED FROM LEFT FOREARM AT 1500. CATHETER TIP INTACT. NO BLEEDING FROM SITE. 2X2 GAUZE APPLIED AND SECURED WITH TAPE. 1510 DISCHARGE INSTRUCTIONS PROVIDED TO PATIENT. VERBALIZED UNDERSTANDING OF ALL INSTRUCTIONS GIVEN. AT BEDSIDE. TELEMETRY D/C'D PATIENT GETTING DRESSED AT THIS TIME.
--- NOTE | 2016-07-27 15:30 | NUR ---
PATIENT LEFT UNIT VIA WHEELCHAIR WITH ALL PERSONAL BELONGINGS. PATIENT IN NO DISTRESS UPON LEAVING UNIT. PATIENT DISCHARGED TO HOME.
== END 2016-07-27 15:30 | disposition home health service (06) | DRG 189 ==
LOC: D.ER 09:57 → D.M2 14:22
PROVIDERS: Emergency Medicine; Family Medicine; Internal Medicine Pulmonary Disease; ADMIT Family Medicine
PROC: 5A09557 Assistance with Respiratory Ventilation, Greater than 96 Consecutive Hours, Continuous Positive Airway Pressure (ICD-10-PCS; principal; 2016-07-15)
DX: J96.21 Acute and chronic respiratory failure with hypoxia (principal); J15.6 Pneumonia due to other Gram-negative bacteria; J13 Pneumonia due to Streptococcus pneumoniae; I50.23 Acute on chronic systolic (congestive) heart failure; J44.0 Chronic obstructive pulmonary disease with (acute) lower respiratory infection; I13.0 Hypertensive heart and chronic kidney disease with heart failure and stage 1 through stage 4 chronic kidney disease, or unspecified chronic kidney disease; C94.6 Myelodysplastic disease, not elsewhere classified; J44.1 Chronic obstructive pulmonary disease with (acute) exacerbation; Z99.81 Dependence on supplemental oxygen; I27.2 Other secondary pulmonary hypertension; I48.91 Unspecified atrial fibrillation; N18.3 Chronic kidney disease, stage 3 (moderate); R04.0 Epistaxis; E11.22 Type 2 diabetes mellitus with diabetic chronic kidney disease; E09.9 Drug or chemical induced diabetes mellitus without complications; T38.0X5A Adverse effect of glucocorticoids and synthetic analogues, initial encounter; Z79.01 Long term (current) use of anticoagulants; Z87.891 Personal history of nicotine dependence

== ENCOUNTER 2016-08-05 15:17 | Inpatient (IN) | payer MEDICARE ==
[~2016-08-05] VITALS: Ht 177.8 cm; Wt 64.7 kg
[~2016-08-05 15:17] MED LIST changes: +LANOXIN250 MCG PO; +LEXAPRO10 MG PO
--- NOTE | 2016-08-05 15:35 | NUR ---
TRANSFER FROM ADMISSIONS BY W/C. OREINTED TO ROOM. AT BS. CALL LIGHT IN REACH. WILL CONT. PLAN OF CARE.
[2016-08-05 15:41] VITALS: BP 118/67; BMI 19.1
[2016-08-05] MEDS ORDERED: CARDIZEM CD120 MG PO (15:51)
[2016-08-05 16:00] VITALS: BP 118/67
--- NOTE | 2016-08-05 16:00 | NUR ---
IV STARTED TO RIGHT ARM WITH 22 GAUGE CATH X 1 STICK AND FLUSHED WITH NS. LINE IS PATENT.
[2016-08-05 16:12] LABS: BASOPHILS 0.7 % (0.0-2.0); EOSINOPHILS 2.2 % (0-7); HEMATOCRIT 32.9 % (42.0-54.0); HEMOGLOBIN 9.9 g/dL (13.5-17.5); IMMATURE GRANULOCYTES 0.9 % (0-5); LYMPHOCYTES 6.4 % (15-50); MCH 29.2 pg (26.0-34.0); MCHC 30.1 g/dL (31.0-37.0); MCV 97.1 fL (80.0-100.0); MEAN PLATELET VOLUME 11.6 fL (7.4-10.4); MONOCYTES 3.2 % (2-11); NEUTROPHILS 86.6 % (40-80); RBC 3.39 10x6/uL (4.20-6.10); RDW 16.9 % (11.5-14.5); WBC 13.3 10x3/uL (4.8-10.8)
[2016-08-05 16:13] LABS: PLATELET COUNT 305 10x3/uL (130-400)
[2016-08-05 16:37] LABS: ALBUMIN 2.8 g/dL (3.4-5.0); ANION GAP 8.9 mmol/L (8-16); BILIRUBIN - TOTAL 0.75 mg/dL (0.2-1.3); CALCIUM 8.4 mg/dL (8.5-10.1); CARBON DIOXIDE 34.7 mmol/L (21.0-32.0); CREATININE - SERUM 1.3 mg/dL (0.6-1.3); POTASSIUM - SERUM 3.6 mmol/L (3.5-5.1); PROTEIN - SERUM 5.9 g/dL (6.4-8.2)
--- NOTE | 2016-08-05 19:42 | NUR ---
RESUMED CARE OF PT, LYING IN BED RESPIRATIONS EVEN AND UNLABRED ON 5LPM VIA NC. 104 UCAF ON TELEMETRY. STATES HE HAS HAD HIS DIGOXIN TODAY AND HAS BEEN HOLDING HIS CARDIZEM AT HOME. RIGHT FOREARM INFUSING NS @ KVO. CALL LIGHT IN REACH. WILL CONTINUE TO MONITOR. SEE NURSE ASSESSMENT.
[2016-08-05 20:39] VITALS: BP 96/51
[2016-08-06 00:47] VITALS: BP 98/71
--- NOTE | 2016-08-06 00:47 | NUR ---
LYING IN BED WITH EYES CLOSED, CALL LIGHT IN REACH. WILL CONTINUE TO MONITOR.
[2016-08-06 04:56] VITALS: BP 98/69
[2016-08-06 05:40] LABS: BASOPHILS 0.2 % (0.0-2.0); EOSINOPHILS 0.1 % (0-7); HEMOGLOBIN 9.6 g/dL (13.5-17.5); IMMATURE GRANULOCYTES 0.5 % (0-5); MCH 29.3 pg (26.0-34.0); MEAN PLATELET VOLUME 12.1 fL (7.4-10.4); MONOCYTES 1.7 % (2-11); NEUTROPHILS 93.5 % (40-80); PLATELET COUNT 283 10x3/uL (130-400); RBC 3.28 10x6/uL (4.20-6.10); WBC 11.1 10x3/uL (4.8-10.8)
[2016-08-06 05:46] LABS: MCV 94.5 fL (80.0-100.0)
[2016-08-06 06:05] LABS: ALBUMIN 2.5 g/dL (3.4-5.0); ANION GAP 10.1 mmol/L (8-16); BILIRUBIN - TOTAL 0.56 mg/dL (0.2-1.3); CALCIUM 8.3 mg/dL (8.5-10.1); CARBON DIOXIDE 31.6 mmol/L (21.0-32.0); CREATININE - SERUM 1.2 mg/dL (0.6-1.3); POTASSIUM - SERUM 3.7 mmol/L (3.5-5.1)
--- NOTE | 2016-08-06 07:30 | NUR ---
ASSESSMENT DONE. PT SLEEPING, BUT EASILY AWAKEN. DENIES NEEDS OR DISCOMFORT AT THIS TIME. STATES SOB BETTER. REFUSES SCD'S. CALL LIGHT WITH IN REACH. WILL CONT. TO MONITOR.
[2016-08-06 08:26] VITALS: BP 125/65
--- NOTE | 2016-08-06 09:38 | NUR ---
RESP UL ON 5L NC. IV PATENT. FOOT SPECIALIST AT . CALL LIGHT IN REACH. WILL CONT. PLAN OF CARE.
--- NOTE | 2016-08-06 10:06 | NUR ---
Patient Name: GONZALES STAFFORD Admission Status: Elective Accout number: [id number] Admission Date: 08-05-2016 : 1935 Admission Diagnosis: Attending: HERBERT Current LOS: 1 Anticipated DC Date: Planned Disposition: Home with Hospice Primary Insurance: [facility] PLANNED EXTERNAL PROVIDER: [facility] Discharge Planning Comments: * Is the patient Alert and Oriented? Yes 0 * How many steps to enter\exit or inside your home? NONE 0 * PCP DR. INIGUEZ 0 * Pharmacy [facility] 0 * Preadmission Environment Home with Family 0 * ADLs Independent 0 * Equipment Nebulizer Oxygen Shower Chair 0 * Other Equipment HOME AND PORTABLE OXYGEN [facility] - MEDICAL EQUIPMENT PROVIDER 0 * List name and contact numbers for known caregivers / representatives who currently or will assist patient after discharge: BRYAN STAFFORD, SPOUSE, 0 * Community resources currently utilized Home Health 0 * Please name any agencies selected above. [facility] 0 * Additional services required to return to the preadmission environment? No 0 * Can the patient safely return to the preadmission environment? Yes 0 * Has this patient been hospitalized within the prior 30 days at any hospital? Yes 0 CM RECEIVED ORDER FOR HOSPICE CONSULT, MET WITH PT IN ROOM TO DISCUSS DISCHARGE PLANNING AND NEEDS. PT REPORTS LIVING AT HOME INDEPENDENTLY WITH HIS SPOUSE. PT REPORTS HAVING ALL NEEDED MEDICAL EQUIPMENT PROVIDED BY [facility]. PT HAS HOME HEALTH WITH [facility]. CM DISCUSSED AVAILABILITY OF HOME HEALTH, REHAB SERVICES AND MEDICAL EQUIPMENT WELL HOSPICE CONSULT. PT WOULD LIKE TO SPEAK TO [facility] TODAY WHEN HIS IS HERE AT ABOUT LUNCHTIME FOR INFORMATION AND WOULD LIKE [facility] TO BE CALLED, REPORTS PLAN TO RETURN HOME, POSSIBLY WITH HOSPICE, HIS SPOUSE WILL PICK HIM UP FOR DISCHARGE HOME. CM CALLED [facility], , SPOKE TO YAKOV WHO WILL CONTACT PT'S SPOUSE TO ARRANGE MEETING WITH PT AND SPOUSE IN HOSPITAL ROOM TODAY. CM FAXED REFERRAL TO [facility], . CM WAITING CONSULT BY [facility] TODAY WELL PT / FAMILY DECISION REGARDING HOSPICE SERVICE. Chisel Grinder: Osito Edmondson
--- NOTE | 2016-08-06 11:00 | NUR ---
PT SLEEPING. HOB ELEVATED. APPEARS COMFORTABLE. RESP EVEN AND UNLABORED. CALL LIGHT WITH IN REACH. WILL CONT.TO MONITOR.
[2016-08-06 12:10] VITALS: BP 105/58
--- NOTE | 2016-08-06 12:10 | NUR ---
PT SITTING ON SIDE OF BED EATING LUNCH. SPOUSE IN ROOM. DENIES NEEDS AT THIS TIME. NO DISTRESS NOTED. CALL LIGHT WITH IN REACH. WILL CONT. TO MONITOR.
[2016-08-06 12:25] VITALS: Ht 177.8 cm; Wt 64.7 kg
--- NOTE | 2016-08-06 12:40 | CN ---
PATIENT NAME:GONZALES BARRIOS MEDICAL RECORD: [id number] : [birth year] LOCATION:D. D.2127 ADMIT DATE: 08/05/16 ACCOUNT: [id number] CONSULTING PHYSICIAN: JAMES MONIQUE MD REFERRING PHYSICIAN: VÍCTOR INIGUEZ DO DATE OF CONSULTATION: 08/05/2016 Consult Note CONSULT REQUESTING PHYSICIAN: Dr. Víctor Iniguez. REASON FOR CONSULTATION: Hcjny-nf-lvkufwz hypoxic respiratory failure, dyspnea. HISTORY OF PRESENT ILLNESS: Mr. Barrios is an 81-year-old gentleman, very well known to our service. The patient does have a history of severe COPD, home oxygen dependent as well as congestive heart failure with a chronic systolic dysfunction with EF nearly 40%. According to the patient, he did fairly, he woke up this morning, he has worsening shortness of breath. He has orthopnea, PND, and also there was some swelling of the lower extremity. The patient was seen in Dr. Iniguez's office and admitted directly from his office. REVIEW OF SYSTEMS: HEENT: There is no sinus congestion. CONSTITUTIONAL: He has generalized weakness, shortness of breath. RESPIRATORY: As in history of present illness. CARDIOVASCULAR: No chest pain. GASTROINTESTINAL: Negative. GENITOURINARY: Negative. Other review of the systems is negative. PAST MEDICAL HISTORY: 1. Congestive heart failure, chronic systolic dysfunction with EF of 40%. 2. Hypertension. 3. Chronic obstructive pulmonary disease of severe degree, home oxygen dependent. 4. Chronic hypoxic respiratory failure. 5. History of skin cancer. PAST SURGICAL HISTORY: 1. He has a cataract surgery. 2. He has a bone marrow aspiration biopsy. 3. He has a prostate surgery. ALLERGIES: ALLERGIC TO PENICILLIN. PRESENT MEDICATIONS: On Zulditech was reviewed. PERSONAL AND SOCIAL HISTORY: The patient is . He lives with his . He is an ex-smoker. He is a nondrinker. FAMILY HISTORY: Noncontributory. PHYSICAL EXAMINATION: GENERAL: Now, the patient is lying comfortably in bed. He is not in acute distress. CONSULT REPORT [id number] GONZALES BARRIOS VITAL SIGNS: The blood pressure is 118/67, pulse is 113, temperature 98.4, and SPO2 is 93% on 5 liters nasal cannula. HEENT: Conjunctivae are pink. Sclerae nonicteric. NECK: Supple, no JVD. CHEST: The chest excursion is minimal on both, has bilateral crackles, wheeze on forceful expiration. HEART: Rhythm regular, normal sound, no murmur. ABDOMEN: Abdomen is soft. Bowel sounds present. No hepatosplenomegaly. RECTAL: Deferred. EXTREMITIES: No cyanosis, no clubbing, no pedal edema. SKIN: The skin is warm, normal turgor. CENTRAL NERVOUS SYSTEM: The patient is awake and alert. There is no obvious cranial nerve abnormality. The gait was not tested. CHEST RADIOGRAPH: There are increased interstitial markings. OTHER LABORATORY DATA: CBC: The WBC is 13.3, hemoglobin is 9.9, hematocrit 32.9, and the platelet count is 305. Chemistry: Sodium 137, potassium 3.6, BUN is 32, and creatinine 1.3. IMPRESSION: 1. Irmza-vb-ywcfjtg hypoxic respiratory failure. 2. Dyspnea on exertion. 3. Tracheobronchitis, rule out pneumonia. 4. Pulmonary edema. 5. Leukocytosis. 6. Congestive heart failure with chronic systolic dysfunction. RECOMMENDATION: 1. Start him on Lasix. 2. IV fluid to KVO. 3. Start methylprednisolone IV. Brovana, budesonide nebulizer, albuterol/ipratropium nebulizer. 4. Levaquin empirically. Follow up labs and chest radiograph in the morning. Dr. Iniguez, once again, thanks for involving me in the care of Mr. Barrios. TRANSINT:[id number] Voice Confirmation ID: [id number] DOCUMENT ID: [id number] JAMES MONIQUE MD at 1240 CC: VÍCTOR INIGUEZ DO [id number] DICTATION DATE: 08/05/16 1737 DISCOVERY MANAGER: 08/05/16 1925 ADM IN [facility] [address] [facility] [place] [address]
--- NOTE | 2016-08-06 14:29 | NUR ---
PT REQUESTED ICECREAM. DENIES ANY OTHER NEEDS OR WANTS AT THIS TIME. CALL LIGHT WITH IN REACH. WILL CONT. TO MONITOR.
[2016-08-06 16:25] VITALS: BP 126/73
[2016-08-06 20:06] VITALS: BP 115/63
[2016-08-07 00:01] VITALS: BP 121/60
[2016-08-07 05:01] VITALS: BP 109/61
[2016-08-07 05:34] LABS: BASOPHILS 0.2 % (0.0-2.0); EOSINOPHILS 0.2 % (0-7); IMMATURE GRANULOCYTES 0.7 % (0-5); MCHC 32.1 g/dL (31.0-37.0); MCV 93.3 fL (80.0-100.0); MEAN PLATELET VOLUME 10.7 fL (7.4-10.4); MONOCYTES 3.4 % (2-11); NEUTROPHILS 92.5 % (40-80); PLATELET COUNT 261 10x3/uL (130-400); RDW 16.7 % (11.5-14.5)
[2016-08-07 05:38] LABS: WBC 15.6 10x3/uL (4.8-10.8)
[2016-08-07 05:43] LABS: ANION GAP 13.6 mmol/L (8-16); CALCIUM 8.6 mg/dL (8.5-10.1); CREATININE - SERUM 1.1 mg/dL (0.6-1.3); MAGNESIUM - SERUM 2.1 mg/dL (1.8-2.4); POTASSIUM - SERUM 3.6 mmol/L (3.5-5.1)
[2016-08-07 07:20] VITALS: BP 117/82
--- NOTE | 2016-08-07 07:44 | NUR ---
0715-SITTING UP IN BED AT 45 DEGREE SETTING WITH UPDRAFT TREATMENT BEING DONE. ON 4L PER NC, ON HEART MONITOR SHOWING UCAF, HR 109. RIGHT UPPER ARM SEEN WITH NS INFUSING AT 5 CC/HR. WILL ASSESS LUNGS WITH ASSESSMENT, DENIES NEEDS AT PRESENT TIME.
[2016-08-07 11:13] VITALS: BP 115/62
--- NOTE | 2016-08-07 13:24 | NUR ---
UP TO SINK TO SHAVE AND BRUSH TEETH. FEMALE MEMBER AT BEDSIDE. WILL CONTINUE TO MONITOR, DENIES NEEDS OR ASSISTANCE.
[2016-08-07 15:12] VITALS: BP 106/62
--- NOTE | 2016-08-07 18:12 | NUR ---
DENIES NEEDS AT PRESENT TIME, WATCHING TV. WILL CONTINUE TO MONITOR AND ASSESS OFTEN. CALL LIGHT IS IN USE.
--- NOTE | 2016-08-07 18:16 | NUR ---
Telephone call to [facility]. Spoke with Kristin. Hernandez met w/ the patient and his 08/06/16. The patient and appeared very receptive to hospice care per documentation. He did state he wanted to think it over. Information was given and questions answered. Legals have not been signed yet. [facility] is available over the weekend to complete legals . CM will follow to assist.
--- NOTE | 2016-08-07 20:04 | NUR ---
RESTING IN BED. ALERT/ORIENTED. O2 @ 4L/NC WITH NONLABORED RESPIRATIONS. UCAF PER TELEMETRY. IV TO WILIAM WITH NS @ 10ML/HR. REVIEWED PLAN OF CARE. PT VERY PLEASANT. SEE ASSESSMENT. CALL LIGHT IN REACH.
[2016-08-07 20:51] VITALS: BP 118/71
--- NOTE | 2016-08-07 21:58 | NUR ---
PT RESTING IN BED WITH NO DISTRESS. EATING ICECREAM. IV SOLUMEDROL ADMINISTERED. CALL LIGHT IN REACH.
--- NOTE | 2016-08-07 23:13 | NUR ---
RESTING WITH EYES CLOSED. NO DISTRESS. CPOC.
[2016-08-08 00:30] VITALS: BP 117/68
[2016-08-08 04:03] LABS: BASOPHILS 0.3 % (0.0-2.0); EOSINOPHILS 0.8 % (0-7); HEMATOCRIT 29.3 % (42.0-54.0); HEMOGLOBIN 8.9 g/dL (13.5-17.5); IMMATURE GRANULOCYTES 0.7 % (0-5); LYMPHOCYTES 4.9 % (15-50); MCHC 30.4 g/dL (31.0-37.0); MEAN PLATELET VOLUME 10.6 fL (7.4-10.4); MONOCYTES 0.9 % (2-11); NEUTROPHILS 92.4 % (40-80); PLATELET COUNT 249 10x3/uL (130-400); RBC 3.07 10x6/uL (4.20-6.10); RDW 16.9 % (11.5-14.5); WBC 15.7 10x3/uL (4.8-10.8)
[2016-08-08 04:05] LABS: ANION GAP 13.9 mmol/L (8-16); CALCIUM 8.2 mg/dL (8.5-10.1); CARBON DIOXIDE 28.8 mmol/L (21.0-32.0); CREATININE - SERUM 1.1 mg/dL (0.6-1.3); MAGNESIUM - SERUM 1.8 mg/dL (1.8-2.4); MCV 95.4 fL (80.0-100.0); POTASSIUM - SERUM 3.7 mmol/L (3.5-5.1)
[2016-08-08 04:30] VITALS: BP 129/74
--- NOTE | 2016-08-08 07:23 | NUR ---
JUST BACK FROM XRAY VIA WHEELCHAIR. ON HEART MONITOR SHOWING UCAF, HR 121. ON 4 L PER NC. ON EP, LABS ARE NORMAL. RIGHT UPPER ARM WITH NS INFUSING AT 10 CC/HR. WILL CONTINUE TO MONITOR.
[2016-08-08 08:28] VITALS: BP 112/69
[2016-08-08 12:42] VITALS: BP 125/80
[2016-08-08 16:03] VITALS: BP 123/75
--- NOTE | 2016-08-08 17:42 | NUR ---
Late Entry 1030 DR Bazan spoke with medical case manager this AM. He said patient stated he wanted to consider his options. At that time patient did indicated he was ready for hospice. 1730- Patient's primary nurse, China, advised CM that the patient wanted to speak w/ Mary from [facility] and Yanira, in the AM. TC to [facility]. Received CB from on-call nurse, Ham. He will advise Mary of patient's request.
--- NOTE | 2016-08-08 18:08 | NUR ---
DENIES NEEDS AT PRESENT TIME. HAS HAD 2 VANILLA ICE CREAMS. I SPOKE WITH CHANTE LONDON AND SHE WILL CALL MERRY WITH HOSPICE TO LET HER KNOW THAT PATIENT WANTS TO TALK TO HER TOMORROW. THIS IS RELAYED TO THE PATIENT.
--- NOTE | 2016-08-08 19:53 | NUR ---
RESUMED CARE OF PT, LYING IN BED RESPIRATIONS EVEN AND UNLABORED ON 4LPM VIA NC. 122 UCAF ON TELEMETRY. RIGHT UPPER ARM INFUSING NS @ KVO . PLAN OF CARE. CALL LIGHT IN REACH. SEE NURSE ASSESSMENT, WILL CONTINUE TO MONITOR.
[2016-08-08 20:51] VITALS: BP 135/79
[2016-08-09 00:30] VITALS: BP 133/85
[2016-08-09 04:30] VITALS: BP 133/77
--- NOTE | 2016-08-09 04:52 | NUR ---
DENTAL TECHNICIAN APPRENTICE AT BEDSIDE TO OBTAIN VITALS, CALL LIHGT IN REACH. WILL CONTINUE WITH PLAN CARE
[2016-08-09 05:43] LABS: BASOPHILS 0.2 % (0.0-2.0); EOSINOPHILS 0.7 % (0-7); HEMOGLOBIN 9.2 g/dL (13.5-17.5); LYMPHOCYTES 6.7 % (15-50); MCH 28.6 pg (26.0-34.0); MCHC 29.7 g/dL (31.0-37.0); MCV 96.3 fL (80.0-100.0); MEAN PLATELET VOLUME 11.1 fL (7.4-10.4); MONOCYTES 1.3 % (2-11); NEUTROPHILS 90.1 % (40-80); PLATELET COUNT 263 10x3/uL (130-400); RBC 3.22 10x6/uL (4.20-6.10); RDW 16.9 % (11.5-14.5); WBC 14.1 10x3/uL (4.8-10.8)
[2016-08-09 06:13] LABS: ANION GAP 14.3 mmol/L (8-16); CALCIUM 8.4 mg/dL (8.5-10.1); CARBON DIOXIDE 27.9 mmol/L (21.0-32.0); CREATININE - SERUM 1.1 mg/dL (0.6-1.3); POTASSIUM - SERUM 4.2 mmol/L (3.5-5.1)
--- NOTE | 2016-08-09 06:41 | NUR ---
GONE FOR XRAY, NO CHANGES FROM PREVIOUS ASSESSMENT.
[2016-08-09 08:03] VITALS: BP 131/72
--- NOTE | 2016-08-09 09:10 | NUR ---
DR. PONCE NURSE NOTIFIED OF CONSULT AND HR 164-170. WILL COPNT. TO MONITOR.
--- NOTE | 2016-08-09 09:22 | NUR ---
AF WITH HR 178. DR. INIGUEZ AND DR. COURTNEY NOTIFIED. NEW ORDERS GIVEN.
[2016-08-09 12:19] VITALS: BP 135/72
--- NOTE | 2016-08-09 12:58 | NUR ---
Nutrition follow-up: Diet: Regular as tolerated PO intake 100% of meals, snacks Pt with end-stage COPD; hospice consulted Labs reviewed Wt: 133# Will continue to provide food choices and honor food preferences. Pt with good po intake at this time. RDN following.
[2016-08-09 16:12] VITALS: BP 130/68
--- NOTE | 2016-08-09 19:30 | NUR ---
RECIEVED PT IN BED AAOX4 RESP UNLABORED DENIES ANY NEEDS OR DISCOMFORT NAD NOTED
[2016-08-09 20:23] VITALS: BP 119/62
--- NOTE | 2016-08-09 23:58 | NUR ---
RESTING QUIETLY NAD NOTED
[2016-08-10] VITALS (7 sets, daily range): BP systolic 98–132; BP diastolic 56–93
[2016-08-10 05:36] LABS: BASOPHILS 0.5 % (0.0-2.0); EOSINOPHILS 2.4 % (0-7); HEMATOCRIT 29.8 % (42.0-54.0); IMMATURE GRANULOCYTES 1.7 % (0-5); LYMPHOCYTES 7.6 % (15-50); MCH 28.8 pg (26.0-34.0); MCHC 30.2 g/dL (31.0-37.0); MCV 95.2 fL (80.0-100.0); MEAN PLATELET VOLUME 11.5 fL (7.4-10.4); MONOCYTES 6.2 % (2-11); NEUTROPHILS 81.6 % (40-80); PLATELET COUNT 254 10x3/uL (130-400); RBC 3.13 10x6/uL (4.20-6.10); RDW 17.2 % (11.5-14.5); WBC 14.8 10x3/uL (4.8-10.8)
[2016-08-10 05:54] LABS: ANION GAP 12.8 mmol/L (8-16); CALCIUM 8.5 mg/dL (8.5-10.1); CARBON DIOXIDE 28.2 mmol/L (21.0-32.0); CREATININE - SERUM 1.1 mg/dL (0.6-1.3); MAGNESIUM - SERUM 1.9 mg/dL (1.8-2.4)
--- NOTE | 2016-08-10 10:02 | NUR ---
DR. CHRISTY NOTIFIED OF HR 180S. NEW ORDERS GIVEN. WILL CONT. TO MONITOR.
--- NOTE | 2016-08-10 15:15 | NUR ---
Received report from nurse Ev, received patient in bed, away. Reports no pain or concerns. No distress assessed. oxygen at 4L/NC in place. Telemetry in place.
--- NOTE | 2016-08-10 19:15 | NUR ---
BEDSIDE REPORT RECEIVED AND CARE OF PT ASSUMED. PT SITTING UP IN BED WATCHING TV. iv RIGHT UPPER ARM SL. TELEMETRY IN PLACE AND READING UNCONTROLLED A-FIB AT THIS ASSESSMENT. WILL MONITOR CLOSELY FOR NEEDS. CALL LIGHT WITHIN REACH.
--- NOTE | 2016-08-10 21:30 | NUR ---
ORAL CARE PERFORMED BY PT AFTER SET UP. WILL CONTINUE TO MONTIOR FOR NEEDS.
[2016-08-11 04:42] LABS: BASOPHILS 0.4 % (0.0-2.0); EOSINOPHILS 1.8 % (0-7); HEMATOCRIT 32.6 % (42.0-54.0); HEMOGLOBIN 9.8 g/dL (13.5-17.5); IMMATURE GRANULOCYTES 5.1 % (0-5); LYMPHOCYTES 10.3 % (15-50); MCH 28.6 pg (26.0-34.0); MCHC 30.1 g/dL (31.0-37.0); MEAN PLATELET VOLUME 11.1 fL (7.4-10.4); MONOCYTES 4.6 % (2-11); NEUTROPHILS 77.8 % (40-80); PLATELET COUNT 279 10x3/uL (130-400); RBC 3.43 10x6/uL (4.20-6.10); RDW 17.5 % (11.5-14.5)
[2016-08-11 04:46] LABS: WBC 19.5 10x3/uL (4.8-10.8)
[2016-08-11 05:08] LABS: ANION GAP 15.3 mmol/L (8-16); CALCIUM 8.4 mg/dL (8.5-10.1); CARBON DIOXIDE 27.7 mmol/L (21.0-32.0); CREATININE - SERUM 1.2 mg/dL (0.6-1.3); MAGNESIUM - SERUM 2.1 mg/dL (1.8-2.4)
[2016-08-11] MEDS ORDERED: PREDNISONE20 MG PO (07:55)
[2016-08-11 08:00] VITALS: BP 146/73
--- NOTE | 2016-08-11 08:54 | NUR ---
Patient Name: GONZALES STAFFORD Encounter No: [id number] : 1935 Primary Insurance: [employer] Anticipated DC Date: 08-11-2016 Planned Disposition: Home with Hospice External Planned Provider: [facility] DCP follow-up note: CM SPOKE TO PT IN ROOM REGARDING DISCHARGE PLANNING AND NEEDS. PT REPORTS THAT THEY HAVE DECIDED TO DISCHARGE HOME WITH [facility] AND THE DOCTOR WILL DISCHARGE PT TODAY. PT'S SPOUSE TO TRANSPORT HOME. PT REPORTS THAT HE SIGNED LEGALS WITH HOSPICE AND HE WILL CALL THEM WHEN HE ARRIVES AT HOME FOR ADMISSION BY HOSPICE. PT DENIES FURHTER DISCHARGE NEEDS. IMPORTANT MESSAGE FROM MEDICARE PROVIDED AND DISCUSSED. CM CALLED [facility], , NOTIFIED JONO THAT PT WOULD NOT BE RETURNING TO HOME HEALTH SERVICES. FOR DISCHARGE, CM TO FAX DISCHARGE INSTRUCTIONS, MEDICATIONS AND SUMMARY TO [facility], . Osito Edmondson, CASE MANAGEMENT
--- NOTE | 2016-08-11 09:48 | NUR ---
TELEMETRY UCAF HR 115. RESP UL ON 02 4L NC. WILL CONT. PLAN OF CARE.
--- NOTE | 2016-08-11 11:58 | NUR ---
IV AND TELEMETRY DCD. DC PLANS GIVEN. UNDERSTANDING VOICED. ESCORTED TO CAR BY W/C.
--- NOTE | 2016-08-11 13:16 | NUR ---
Patient Name: GONZALES STAFFORD Admission Status: Elective Accout number: [id number] Admission Date: 08-05-2016 : 1935 Admission Diagnosis:SHORTNESS OF BREATH Attending: HERBERT Current LOS: 6 Anticipated DC Date: 08-11-2016 Planned Disposition: Home with Hospice Primary Insurance: [facility] PLANNED EXTERNAL PROVIDER: [facility] Discharge Planning Comments: PT DISCHARGED HOME WITH ASSISTANCE OF SPOUSE. CM FAXED DISCHARGE INSTRUCTIONS, MEDICATION LIST AND DC ORDER TO [facility], . Osito Edmondson, CASE MANAGEMENT
--- NOTE | 2016-08-20 08:46 | CN ---
PATIENT NAME:GONZALES STAFFORD MEDICAL RECORD: [id number] : 35 LOCATION:D. D.2127 ADMIT DATE: 08/05/16 ACCOUNT: [id number] CONSULTING PHYSICIAN: NAIMA CHRISTY MD REFERRING PHYSICIAN: MARCO INIGUEZ DO DATE OF CONSULTATION: 08/09/2016 DIAGNOSES: 1. Chronic atrial fibrillation. 2. Chronic obstructive pulmonary disease. 3. Pneumonia. HISTORY OF PRESENT ILLNESS: This is a gentleman who is admitted with respiratory distress and pneumonia and has chronic atrial fibrillation. He is on diltiazem 120 mg at home. His heart rate has been in the 120-170 range here, systolic blood pressures in the 130 range. He is as well on digoxin 0.25 mg q. day. PHYSICAL EXAMINATION GENERAL APPEARANCE: Well-nourished, well-developed, appears stated age. Level of distress, comfortable. PSYCHIATRIC: Mental status, alert, normal affect. Orientation, oriented to time, place and person. EYES: Lids and conjunctiva, noninjected. No discharge, no pallor. ENT: Lips, teeth, gums, normal dentition. Oropharynx, no cyanosis, no pallor. NECK: Carotid arteries, bilateral normal upstroke, no bruits, no thrills. JUGULAR VEINS: No jugular venous pressure or distention. CERVICAL LYMPH NODES: Nontender, nonenlarged. THYROID: Not enlarged. Nontender. No nodules. LUNGS: Respiratory effort, unlabored. CHEST: Normal curvature. No thoracic deformity. No chest wall tenderness. Percussion, resonant. Auscultation, clear. No wheezes, no rales, no rhonchi. CARDIOVASCULAR: Heart is irregularly irregular, rapid ventricular response with atrial fibrillation. EXTREMITIES: No cyanosis, no edema. Peripheral pulses, full and equal in all extremities, except as noted. No bruits appreciated. ABDOMEN: Soft, nondistended. Normal aorta. No bruit. Nontender. No masses. Liver, nontender, no hepatomegaly. Spleen, nontender, no splenomegaly. MUSCULOSKELETAL: No joint tenderness. No joint swelling. No erythema. NEUROLOGICAL: Normal gait, normal strength, normal tone. SKIN: Warm and dry. OVERALL IMPRESSION: Atrial fibrillation with rapid ventricular response. Clearly, the response is more rapid now that he has respiratory distress and respiratory compromise secondary to pneumonia and chronic obstructive pulmonary disease exacerbation. We will increase the diltiazem to 240 mg q. day, give a 20 mg bolus now. Hopefully, this will slow the rate, continue to keep it under control. We will leave the digoxin at 0.25 q. day. TRANSINT:[id number] Voice Confirmation ID: [id number] DOCUMENT ID: [id number] CONSULT REPORT [id number] GONZALES STAFFORD, NAIMA OCHOA at 0846 CC: [id number] DICTATION DATE: 08/09/16 1008 DISTRIBUTION CENTER ASSOCIATE: 08/09/16 1056 DIS IN 08/11/[address] [facility] [address] [place] [address]
== END 2016-08-11 11:59 | disposition home or self-care (01) | DRG 190 ==
LOC: D.M2 15:17
PROVIDERS: Internal Medicine Pulmonary Disease; ADMIT Family Medicine
DX: J44.0 Chronic obstructive pulmonary disease with (acute) lower respiratory infection (principal); I50.23 Acute on chronic systolic (congestive) heart failure; J96.21 Acute and chronic respiratory failure with hypoxia; J18.9 Pneumonia, unspecified organism; I13.0 Hypertensive heart and chronic kidney disease with heart failure and stage 1 through stage 4 chronic kidney disease, or unspecified chronic kidney disease; J98.11 Atelectasis; J44.1 Chronic obstructive pulmonary disease with (acute) exacerbation; N18.3 Chronic kidney disease, stage 3 (moderate); I48.2 Chronic atrial fibrillation; E09.9 Drug or chemical induced diabetes mellitus without complications; T38.0X5A Adverse effect of glucocorticoids and synthetic analogues, initial encounter; D64.9 Anemia, unspecified; I95.9 Hypotension, unspecified; Z99.81 Dependence on supplemental oxygen; I27.2 Other secondary pulmonary hypertension; D46.9 Myelodysplastic syndrome, unspecified